=== PATIENT | male | born 1935 | race Caucasian/White ===

== ENCOUNTER 2020-05-29 13:19 | Outpatient (REF) | payer MEDICARE, OTHER, SELFPAY ==
[2020-05-29 16:32] LABS: Hematocrit 44.3 % (42-52); Hemoglobin 13.5 g/dl (14.0-18.0)
[2020-05-29 17:01] LABS: Alanine Aminotransferase 10 U/L (0-40); Albumin Level 3.8 g/dL (3.5-5.0); Alkaline Phosphatase 107 U/L (39-117); Anion Gap 18 (12-20); Aspartate Amino Transferase 13 U/L (5-37); Bilirubin Total 0.5 mg/dL (0.0-1.0); Blood Urea Nitrogen 31 mg/dL (9-16); Carbon Dioxide 28 mmol/L (22-29); Chloride 102 mmol/L (96-108); Estimated Glomerular Filt Rate > 60; Glucose Random 212 mg/dL (60-115); Potassium 4.4 mmol/L (3.3-5.1); Sodium 144 mmol/L (135-145); Total Protein 7.7 g/dL (6.5-8.0)
== END 2020-05-29 13:20 | disposition home or self-care (01) ==
LOC: HO.HMGCLDS 13:19
PROVIDERS: PCP Internal Medicine; Visit Provider Internal Medicine
DX: F33.9 Major depressive disorder, recurrent, unspecified (principal); I10 Essential (primary) hypertension; J44.9 Chronic obstructive pulmonary disease, unspecified; K21.9 Gastro-esophageal reflux disease without esophagitis
CPT/HCPCS: 36415; 80053; 85014; 85018

== ENCOUNTER 2020-06-09 00:23 | Outpatient (REF) | payer MEDICARE, OTHER, SELFPAY ==
[2020-06-09 11:43] LABS: Estimated Average Glucose 128 mg/dL; Hemoglobin A1c % 6.1 %
== END 2020-06-09 00:24 | disposition home or self-care (01) ==
LOC: HO.LHD 00:23
PROVIDERS: Visit Provider Internal Medicine
DX: R73.9 Hyperglycemia, unspecified (principal)
CPT/HCPCS: 36415; 83036

== ENCOUNTER 2020-11-25 10:19 | Emergency (ER) | payer MEDICARE, OTHER, SELFPAY ==
--- NOTE | ~2020-11-25 | XR_ITS ---
EXAMINATION: XR ABDOMEN KUB CLINICAL INDICATION: Constipation COMPARISON: None TECHNIQUE: AP view of the abdomen. FINDINGS: There is scattered stool and gas seen throughout the colon without any significant distention. The small bowel loops are normal caliber. There is mild spondylosis mid dorsal spine. No lytic process. XR/XR abdomen 1V IMPRESSION: Moderate constipation no acute process seen.
[2020-11-25 10:37] VITALS: BP 132/78; PULSE 73; O2SAT 99
[2020-11-25 10:39] VITALS: BP 123/59; PULSE 86; RESP 15; TEMP 36.4; O2SAT 96; BMI 25.0
[2020-11-25 10:41] VITALS: BP 123/59; PULSE 86; RESP 15; TEMP 36.4; O2SAT 96
--- NOTE | 2020-11-25 11:33 | ED.GENADULT ---
HPI - General Adult General Chief complaint: General Medical Stated complaint: constipation Time Seen by Provider: 11/25/20 11:31 Source: patient and family History of Present Illness HPI narrative: This is an 85-year-old male who cannot recall why he is in the emergency department. His had reported that the patient has not had a bowel movement in 2 days and has had urinary incontinence at night the last few nights. The patient self denies any headache, head injury, neck pain, chest pain, shortness of breath. He does have some chronic cough and notes that he smokes a pack-a-day. He denies abdominal pain, vomiting or diarrhea. Denies any pain or swelling to his extremities. Related Data Home Medications Medication Instructions Recorded Confirmed albuterol sulfate 90 mcg/actuation 2 puff INHALATION Q4-6H PRN 01/09/20 05/29/20 aerosol inhaler (ProAir HFA) dextromethorphan-guaifenesin 30 1 tab PO Q12H PRN tab 01/09/20 05/29/20 mg-600 mg tablet extended [id number] hr (Mucinex DM) loratadine 10 mg tablet (Claritin) 10 mg PO DAILY 01/09/20 05/29/20 omeprazole 20 mg capsule,delayed 20 mg PO BID 01/09/20 05/29/20 release donepezil PO DAILY 05/29/20 05/29/20 metoprolol succinate 100 mg 50 mg PO BID tab 05/29/20 05/29/20 tablet,extended release 24 hr Previous Rx's Medication Instructions Recorded fluticasone 250 mcg-salmeterol 50 1 inh INHALATION Q12H PRN 30 Days 07/09/20 mcg/dose blistr powdr for #60 ea inhalation (Advair Diskus) amlodipine 5 mg tablet 5 mg PO DAILY 90 Days #90 tab 08/18/20 escitalopram oxalate 10 mg tablet 10 mg PO DAILY #90 tab 09/25/20 metoprolol succinate 100 mg 150 mg PO DAILY 90 Days #135 tab 10/29/20 tablet,extended release 24 hr docusate sodium 100 mg capsule 100 mg PO BID #30 cap 11/25/20 (Colace) peg 3350-electrolytes 236 240 ml PO Q10M #4000 ml 11/25/20 gram-22.74 gram-6.74 gram-5.86 gram solution (Golytely) Allergies Allergy/AdvReac Type Severity Reaction Status Date / Time CADENCE Inhibitors Allergy Unknown angiodema Verified 05/29/20 12:41 lorazepam [Ativan] Allergy Unknown Unknown Verified 05/29/20 12:41 Review of Systems Review of Systems: Yes all other systems are reviewed and are negative Constitutional: Constitutional: Reports as per HPI and Denies fever(s) Comments: Patient not acutely ill appearing, somewhat vague historian Eyes: Eyes: Reports as per HPI and Reports no additional eye complaints ENT: Reports system reviewed and no additional complaints, except as documented, Reports as per HPI, Denies nasal congestion, Denies nasal discharge and Denies sore throat Cardiovascular: Cardiovascular: Reports as per HPI, Denies chest pain and Denies dyspnea Respiratory: Respiratory: Reports as per HPI, Denies cough and Denies dyspnea Gastrointestinal: Gastrointestinal: Reports as per HPI, Denies abdominal pain, Denies diarrhea, Denies vomiting and Reports other (Mild distension, no focal tenderness) Genitourinary: Genitourinary: Reports as per HPI, Denies hematuria, Denies dysuria and Denies urinary frequency Musculoskeletal: Musculoskeletal: Reports no additional musculoskeletal complaints and Denies numbness Integumentary/Breasts: Skin/Breast: Reports as per HPI and Denies rash Neurologic: Reports as per HPI, Denies focal weakness and Denies numbness Psychiatric: Psychiatric: Reports no additional psychiatric complaints and Reports as per HPI Endocrine: Endocrine: Reports no additional endocrine complaints and Reports as per HPI Hematologic/Lymphatic: Hematologic/Lymphatic: Reports no additional hematologic/lymphatic complaints, Reports as per HPI and Reports other (No peripheral edema) [facility] Past Medical History Medical History Chronic GERD COPD (chronic obstructive pulmonary disease) Depression, major, recurrent Environmental allergies Hallucinations Hypertension, essential Surgical History History of cataract surgery Hx of cholecystectomy Family History Family History Father Heart disease Mother Diabetes mellitus Breast cancer Brother No problems noted. Sister Lupus Sister Diabetes mellitus Son No problems noted. Son No problems noted. Son No problems noted. Daughter No problems noted. Daughter No problems noted. Social History Social History Alcohol intake: never Cigarette Packs Per Day: 0.5 Advance Directives: Yes Advance Directives Information Provided: No Advance Directives on File: No Physical Exam Vital Signs: Vital Signs: Last Vital Signs Temp 98 F 11/25/20 12:54 Pulse 72 11/25/20 12:54 Resp 18 11/25/20 12:54 BP 148/68 H 11/25/20 12:54 Pulse Ox 98 11/25/20 12:54 Body Mass Index 25.0 Medical Decision Making MDM Narrative Medical decision making narrative: Patient sent in for not having a bowel movement for a few days. Patient also reportedly had had incontinence of urine. Urinalysis shows microscopic hematuria but no sign of infection. Abdominal flat plate showed findings consistent with constipation. There did appear to be possible fecal impaction. Discussed digital disimpaction with the patient, however he refused this mode of therapy and said he would try a laxative. Will prescribe GoLYTELY to help completely clear out stool from the colon. Patient can also use Colace as a stool softener once he is cleared out of the constipation. Lab Data Lab results reviewed: Yes I reviewed the patient's lab results. Labs: Lab Results 11/25/20 Range/Units 12:52 Urine Color YELLOW Urine Appearance HAZY Urine pH 6.0 (5.0-8.0) Ur Specific Smoot >= 1.030 H (1.005-1.025) Urine Protein 1+ H (NEG-TRACE) MG/DL Urine Glucose (UA) NEG (NEG) MG/DL Urine Ketones NEG (NEG) MG/DL Urine Blood TRACE (NEG) Urine Nitrite NEG (NEG) Ur Leukocyte Esterase NEG (NEG) Urine RBC 15-29 H (0) /HPF Urine WBC 0-2 (0-4) /HPF Ur Squamous Epith Cells TRACE /LPF Urine Bacteria NONE /LPF Imaging Data Abdominal x-ray one view: Radiologist's impression: IMPRESSION: Moderate constipation no acute process seen. Discharge Plan Discharge Clinical Impression: Constipation, Hematuria, microscopic Patient Disposition: Home, Self-Care Instructions: Constipation (ED) Additional Instructions: Use the GoLYTELY, as directed until you move her bowels and have clear liquid stool, indicating if constipation is relieved. Use the Colace to help prevent recurring constipation. Follow-up with primary care physician for recheck of your urine Prescriptions: New peg 3350-electrolytes [Golytely] 236-22.74-6.74 -5.86 gram recon soln 240 ml PO Q10M Qty: 4000 RF: 0 docusate sodium [Colace] 100 mg capsule 100 mg PO BID Qty: 30 RF: 0 No Action fluticasone propion-salmeterol [Advair Diskus] 250-50 mcg/dose blister with device 1 inh inhalation Q12H PRN (Reason: asthma) 30 Days Qty: 60 RF: 3 amlodipine 5 mg tablet 5 mg PO DAILY 90 Days Qty: 90 RF: 0 escitalopram oxalate 10 mg tablet 10 mg PO DAILY Qty: 90 RF: 0 metoprolol succinate 100 mg tablet extended release 24 hr 150 mg PO DAILY 90 Days Qty: 135 RF: 0 metoprolol succinate 100 mg tablet extended release 24 hr 50 mg PO BID RF: 0 donepezil PO DAILY RF: 0 loratadine [Claritin] 10 mg tablet 10 mg PO DAILY RF: 0 Mucinex DM 30-600 mg tablet extended release 12 hr 1 tab PO Q12H PRNRF: 0 omeprazole 20 mg capsule,delayed release(DR/EC) 20 mg PO BID RF: 0 albuterol sulfate [ProAir HFA] 90 mcg/actuation HFA aerosol inhaler 2 puff inhalation Q4-6H PRNRF: 0 Discharge Date/Time: 11/25/20 14:21
[2020-11-25 12:54] VITALS: BP 148/68; PULSE 72; RESP 18; TEMP 36.6; O2SAT 98
[2020-11-25 12:59] LABS: Appearance Urine HAZY; Color Urine YELLOW; Glucose Urine UA NEG (NEG); Leukocyte Esterase Urine NEG (NEG); Nitrite Urine NEG (NEG); Specific Gravity - Urine >= 1.030 (1.005-1.025); UACC Culture Trigger NO; Urine Blood TRACE (NEG); Urine Ketones NEG (NEG); Urine Protein 1+ MG/DL (NEG-TRACE)
--- NOTE | 2020-11-25 13:03 | PC.NURSE ---
Bladder scan showed 475mL. Asked patient to attempt to use bathroom, able to urinate 550mL.
--- NOTE | 2020-11-25 13:05 | PC.NURSE ---
post void bladder scan shows 20mL
[2020-11-25 13:13] LABS: Squamous Epithelial Cell Urine TRACE /LPF; WBC Urine 0-2 /HPF (0-4)
== END 2020-11-25 14:21 | disposition home or self-care (01) ==
PROVIDERS: Emergency Provider Emergency Medicine
DX: K59.00 Constipation, unspecified (principal); R32 Unspecified urinary incontinence; F17.210 Nicotine dependence, cigarettes, uncomplicated; Z71.6 Tobacco abuse counseling; Z79.899 Other long term (current) drug therapy
CPT/HCPCS: 74018; 81001; 99283

== ENCOUNTER 2020-12-04 12:03 | Outpatient (REF) | payer MEDICARE, OTHER, SELFPAY ==
[2020-12-04 14:02] LABS: Appearance Urine HAZY; Color Urine YELLOW; Glucose Urine UA NEG (NEG); Leukocyte Esterase Urine 1+ (NEG); Nitrite Urine NEG (NEG); Specific Gravity - Urine >= 1.030 (1.005-1.025); UACC Culture Trigger YES; Urine Blood NEG (NEG); Urine Ketones NEG (NEG); Urine Protein 1+ MG/DL (NEG-TRACE)
[2020-12-04 14:16] LABS: Calcium Oxalate Crystals Urine 2+ /LPF; Mucus Urine 1+ /LPF; Squamous Epithelial Cell Urine 1+ /LPF; Urine Talc Crystals TRACE /LPF
== END 2020-12-04 12:04 | disposition home or self-care (01) ==
LOC: HO.HMGCLDS 12:03
PROVIDERS: PCP Internal Medicine; Visit Provider Internal Medicine
DX: R31.9 Hematuria, unspecified (principal)
CPT/HCPCS: 81001; 81003; 87086

== ENCOUNTER 2021-01-29 12:51 | Outpatient (REF) | payer MEDICARE, OTHER, SELFPAY ==
[2021-01-29 14:15] LABS: MANUAL DIFF FLAG NO
[2021-01-29 14:17] LABS: Basophils Absolute Auto 0.1 X10*3/uL (0.0-0.2); Basophils Percent Auto 0.7 % (0-2); Eosinophils Absolute Auto 0.3 X10*3/uL (0.0-0.4); Eosinophils Percent Auto 2.8 % (0-4); Hematocrit 42.4 % (42.0-52.0); Hemoglobin 13.2 g/dl (14.0-18.0); Imm Gran Abs Auto 0.07 X10*3/uL (0.00-0.03); Imm Gran Pct Auto 0.7 % (0.0-0.4); Lymphocytes Absolute Auto 2.5 X10*3/uL (1.2-4.9); Lymphocytes Percent Auto 23.1 % (20-40); Mean Corpuscular HGB Conc 31.1 g/dl (31.0-36.0); Mean Corpuscular Hemoglobin 30.8 pg (27.0-33.0); Mean Corpuscular Volume 99.1 fL (80.0-98.0); Mean Platelet Volume 12.9 fL (9.4-12.4); Monocytes Absolute Auto 1.3 X10*3/uL (0.1-1.2); Neutrophils Absolute Auto 6.5 x10*3/uL (2.0-8.3); Neutrophils Percent Auto 60.7 % (45-73); Platelet Count 197 X10*3/uL (160-400); Red Blood Count 4.28 X10*6/uL (4.60-5.80); Red Cell Distribution Width 14.8 % (11.0-16.0); White Blood Count 10.7 X10*3/uL (4.8-10.8)
[2021-01-29 14:32] LABS: Alanine Aminotransferase 11 U/L (0-40); Albumin Level 3.8 g/dL (3.5-5.0); Alkaline Phosphatase 97 U/L (39-117); Anion Gap 15 (12-20); Aspartate Amino Transferase 14 U/L (5-37); Bilirubin Total 0.4 mg/dL (0.0-1.0); Blood Urea Nitrogen 31 mg/dL (9-16); Calcium 9.4 mg/dL (8.4-10.2); Carbon Dioxide 25 mmol/L (22-29); Chloride 106 mmol/L (96-108); Estimated Glomerular Filt Rate > 60; Glucose Random 114 mg/dL (60-115); Potassium 4.3 mmol/L (3.3-5.1); Sodium 142 mmol/L (135-145); Total Protein 7.3 g/dL (6.5-8.0)
== END 2021-01-29 12:52 | disposition home or self-care (01) ==
LOC: HO.HMGCLDS 12:51
PROVIDERS: PCP Internal Medicine; Visit Provider Internal Medicine
DX: I10 Essential (primary) hypertension (principal); F33.9 Major depressive disorder, recurrent, unspecified; J44.9 Chronic obstructive pulmonary disease, unspecified; K21.9 Gastro-esophageal reflux disease without esophagitis; F03.90 Unspecified dementia, unspecified severity, without behavioral disturbance, psychotic disturbance, mood disturbance, and anxiety
CPT/HCPCS: 36415; 80053; 85025

== ENCOUNTER 2021-02-07 22:28 | Inpatient (IN) | payer MEDICARE, OTHER, SELFPAY ==
--- NOTE | ~2021-02-07 | XR_ITS ---
EXAMINATION: XR CHEST CLINICAL INFORMATION: Acute SOB. COMPARISON: None TECHNIQUE: Frontal view of the chest was obtained. FINDINGS: The lungs are well-expanded with increased interstitial markings suggestive of interstitial pneumonitis or edema. The heart size and pulmonary vascularity is normal. No gross bony abnormality seen. XR/XR chest 1V IMPRESSION: Increase interstitial markings both lungs suggestive of interstitial pneumonitis or edema. However there is prominent interstitial markings which have worsened since 2016 likely underlying chronic interstitial lung disease.
--- NOTE | ~2021-02-07 | CT_ITS ---
EXAMINATION: CT ANGIOGRAM OF THE CHEST WITH AND WITHOUT CONTRAST (CT PULMONARY ANGIOGRAM FOR PE) CLINICAL INFORMATION: Hypoxia. COMPARISON: Chest x-ray earlier the same day. CT abdomen pelvis 01/24/2018. TECHNIQUE: Prior to contrast administration, noncontrast localization images were obtained. Subsequently, multidetector volumetric imaging was performed from the thoracic inlet to below the diaphragms following the administration of 65 mL Omnipaque 350 intravenous contrast. No contrast reaction reported Sagittal, coronal, and MIP oblique sagittal reformatted images were obtained on the CT workstation, uploaded to PACS, and reviewed. This CT examination was performed using dose optimization techniques as appropriate, variously including the following: *Automated exposure control *Adjustment of mA and/or kV according to patient size (this includes techniques or standardized protocols for targeted exams where dose is matched to indication/reason for exam; i.e. extremities or head) *Use of iterative reconstruction technique Total exam dose-length product 324 mGy-cm FINDINGS: QUALITY OF STUDY/CONTRAST BOLUS: Fair. There is respiratory motion artifact and contrast under filling most notable in the lower lobes. PULMONARY ARTERIES: No central pulmonary embolus seen. Evaluation of the segmental pulmonary arteries is limited but no filling defects are seen. THORACIC AORTA: Circumferential calcified atherosclerotic changes of the aorta but no aneurysm. LUNG: There is a background of severe centrilobular emphysema. There is round 3.0 x 2.7 cm mass vs. consolidation in the left lower lobe image 27/62. There is adjacent fluid in the left major fissure. There is atelectasis at the lung bases. PLEURA: Small bilateral pleural effusions are present. MEDIASTINUM: 2.2 x 2.1 cm subcarinal lymphadenopathy, nonspecific. There is an enlarged right paratracheal lymph node measuring 2.3 x 1.4 cm. Prominent precarinal lymph nodes. Several subcentimeter AP window and prevascular lymph nodes are present. Right high paratracheal lymph nodes are less than 1 cm in greatest dimension, image 14/62. Heart size upper limits of normal. Three-vessel coronary artery calcification. No pericardial effusion. CHEST WALL/AXILLA: No axillary or internal mammary lymphadenopathy. OSSEOUS STRUCTURES: No acute or suspicious osseous abnormality. UPPER ABDOMEN: Diffuse left adrenal thickening is similar to the prior study. Normal right adrenal gland. The pancreatic duct appears slightly prominent and irregular. There is atrophy of the tail of the pancreas that appears new/worsened from the prior study. No reflux of contrast into the hepatic veins to suggest elevated right heart pressures. CT/CT angio chest PE protocol IMPRESSION: Somewhat limited study but no pulmonary embolus seen. The 3.0 cm mass vs. consolidation in the left lower lobe. This is new from the prior study 01/24/2018. They could be malignant, infectious, or inflammatory. Recommend clinical correlation. Consider further evaluation based on clinical suspicion for pneumonia. If malignancy is favored, PET CT or biopsy could be obtained per Fleischner guidelines. There is a suggestion of increased prominence and irregularity of the pancreatic duct with atrophy tail of the pancreas. An underlying pancreatic mass (malignancy) is possible. Recommend pancreatic protocol CT or preferably MRI for further evaluation, preferably when the patient's acute clinical issues improve to allow adequate breath-holding. Small bilateral pleural effusions. VTE: negative
--- NOTE | ~2021-02-07 | XR_ITS ---
EXAMINATION: XR CHEST CLINICAL INFORMATION: Shortness of breath COMPARISON: 04/12/2015 TECHNIQUE: Frontal view of the chest was obtained. FINDINGS: Lung volumes are symmetric. There are patchy airspace opacities scattered in the right lung and likely also in the left lung to a lesser degree, superimposed on chronic interstitial prominence. No evidence of pneumothorax. Small left pleural effusion may be present. Cardiac size is within normal limits. There is atherosclerotic calcification along the aorta. No acute osseous findings are seen. XR/XR chest 1V IMPRESSION: Patchy airspace opacities, right greater than left, which may reflect pneumonia superimposed on chronic interstitial prominence. Suggestion of small left pleural effusion. Radiographic followup after treatment/resolution of symptoms is recommended.
--- NOTE | 2021-02-07 22:34 | ECG_ITS ---
Test Reason : DYSPNEA Blood Pressure : / mmHG Vent. Rate : 078 BPM Atrial Rate : 078 BPM P-R Int : 192 ms QRS Dur : 078 ms QT Int : 412 ms P-R-T Axes : 061 062 022 degrees QTc Int : 469 ms Normal sinus rhythm Low voltage QRS Borderline ECG When compared with ECG of 24-JAN-2018 13:35, No significant change was found Referred By: Karl Winters Electronically Signed By:JANN MINAYA MD
[2021-02-07 22:39] VITALS: BP 147/55; BP 167/67; PULSE 77; PULSE 90; RESP 25; TEMP 36.4; O2SAT 88; O2SAT 97; BMI 30.7
--- NOTE | 2021-02-07 22:39 | ED.SOB ---
HPI - SOB/Dyspnea General Chief Complaint: Dyspnea Stated Complaint: Difficulity Breathing Time Seen by Provider: 02/07/21 22:33 Source: EMS Mode of arrival: EMS Limitations: altered mental status History of Present Illness HPI Narrative: Patient history of COPD dementia depression hypertension came from home for increased shortness of breath try to used his nebulizer at home was saturating 88% at room air when EMS arrived. Patient with very limited history. Hard of hearing No fever noticed , patient is vaccinated against COVID Related Data Home Medications Medication Instructions Recorded Confirmed albuterol sulfate 90 mcg/actuation 2 puff INHALATION Q4-6H PRN 01/09/20 01/29/21 aerosol inhaler (ProAir HFA) loratadine 10 mg tablet (Claritin) 10 mg PO DAILY 01/09/20 01/29/21 omeprazole 20 mg capsule,delayed 20 mg PO BID 01/09/20 01/29/21 release donepezil PO DAILY 05/29/20 01/29/21 Previous Rx's Medication Instructions Recorded fluticasone 250 mcg-salmeterol 50 1 inh INHALATION Q12H PRN 30 Days 07/09/20 mcg/dose blistr powdr for #60 ea inhalation (Advair Diskus) docusate sodium 100 mg capsule 100 mg PO BID #30 cap 11/25/20 (Colace) peg 3350-electrolytes 236 240 ml PO Q10M #4000 ml 11/25/20 gram-22.74 gram-6.74 gram-5.86 gram solution (Golytely) escitalopram oxalate 10 mg tablet 10 mg PO DAILY #90 tab 12/28/20 amlodipine 5 mg tablet 5 mg PO DAILY 90 Days #90 tab 01/29/21 metoprolol succinate 100 mg 50 mg PO BID PRN 90 Days #45 tab 01/29/21 tablet,extended release 24 hr Allergies Allergy/AdvReac Type Severity Reaction Status Date / Time CADENCE Inhibitors Allergy Unknown angiodema Verified 01/29/21 12:28 lorazepam [Ativan] Allergy Unknown Unknown Verified 01/29/21 12:28 Review of Systems Review of Systems: Yes all other systems are reviewed and are negative PMFSH Past Medical History Medical History Chronic GERD COPD (chronic obstructive pulmonary disease) Depression, major, recurrent Environmental allergies Hallucinations Hypertension, essential Surgical History History of cataract surgery Hx of cholecystectomy Family History Family History Father Heart disease Mother Diabetes mellitus Breast cancer Brother No problems noted. Sister Lupus Sister Diabetes mellitus Son No problems noted. Son No problems noted. Son No problems noted. Daughter No problems noted. Daughter No problems noted. Social History Social History Housing: House Alcohol intake: never Patient Tobacco Use Status: Current everyday Tobacco user Tobacco use type: Cigarette Cigarettes Per Day: 7 Advance Directives: No Advance Directives Information Provided: No Current occupational status: retired Physical Exam Vital Signs: Vital Signs: Last Vital Signs Temp 97.6 F 02/07/21 22:39 Pulse 78 02/07/21 23:03 Resp 18 02/07/21 23:31 BP 147/55 H 02/07/21 22:39 Pulse Ox 97 02/07/21 22:39 Oxygen Flow Rate 1 02/07/21 22:39 BMI result Body Mass Index 30.7 Appearance: Alert. Oriented X2. mild distress , thin built, hard of hearing Eyes: No pallor icterus ENT: Pharynx normal. Oral Mucosa moist Neck: Normal inspection. Neck supple. CVS: Normal heart rate and rhythm. Pulses normal. Respiratory: Mild respiratory distress. Equal air entry bilateral, bilateral wheezing with occasional rales at the bases Abdomen: Soft and nontender. Bowel sounds are present, no mass palpable, Skin: Skin warm and dry. Normal skin color. Normal skin turgor. Extremities: No lower extremity edema. No calf tenderness Neuro: Oriented X 2. No motor deficit. MDM - SOB/Dyspnea MDM Narrative Medical decision making narrative: Patient with COPD with bilateral infiltrate clinically patient is not septic. Will give IV Rocephin and Zithromax patient's BNP is slightly elevated but clinically patient is not in CHF. COVID-19 negative admit patient to medical service Lab Data Attestation: I reviewed the patient's lab results. Result diagrams: 02/07/21 23:32 02/07/21 23:32 Labs: Lab Results 02/07/21 02/07/21 02/07/21 Range/Units 23:32 23:32 23:32 WBC 10.6 (4.8-10.8) X10*3/uL RBC 4.08 L (4.60-5.80) X10*6/uL Hgb 12.7 L (14.0-18.0) g/dl Hct 40.2 L (42.0-52.0) % MCV 98.5 H (80.0-98.0) fL MCH 31.1 (27.0-33.0) pg MCHC 31.6 (31.0-36.0) g/dl RDW 14.8 (11.0-16.0) % Plt Count 188 (160-400) X10*3/uL MPV 12.6 H (9.4-12.4) fL Immature Gran % (Auto) 0.8 H (0.0-0.4) % Neut % (Auto) 64.2 (45-73) % Lymph % (Auto) 20.7 (20-40) % [place] % (Auto) 11.6 H (2-11) % Eos % (Auto) 2.1 (0-4) % Baso % (Auto) 0.6 (0-2) % Lymph # (Auto) 2.2 (1.2-4.9) X10*3/uL [place] # (Auto) 1.2 (0.1-1.2) X10*3/uL Eos # (Auto) 0.2 (0.0-0.4) X10*3/uL Baso # (Auto) 0.1 (0.0-0.2) X10*3/uL Abs Immat Gran (auto) 0.09 H (0.00-0.03) X10*3/uL Absolute Neuts (auto) 6.8 (2.0-8.3) x10*3/uL Absolute Nucleated RBC 0.000 (0.0-0.012) X10*3/uL Nucleated RBC % (auto) 0.0 (0.0-0.2) /100WBC Sodium 139 (135-145) mmol/L Potassium 4.9 (3.3-5.1) mmol/L Chloride 106 (96-108) mmol/L Carbon Dioxide 24 (22-29) mmol/L Anion Gap 14 (12-20) BUN 35 H (9-16) mg/dL Creatinine 0.87 (0.5-1.4) mg/dL Estim Creat Clear Calc 63.8 Estimated GFR > 60 Random Glucose 104 (60-115) mg/dL Lactic Acid (0.5-2.0) mmol/L Calcium 9.4 (8.4-10.2) mg/dL Troponin I High Sens 11.1 (<3.5-35.0) ng/L B-Natriuretic Peptide 624 H (<100) pg/mL COVID-19 (MAR[facility]) (Negative) COVID-19 Clin Com 02/07/21 02/07/21 Range/Units 23:32 23:32 WBC (4.8-10.8) X10*3/uL RBC (4.60-5.80) X10*6/uL Hgb (14.0-18.0) g/dl Hct (42.0-52.0) % MCV (80.0-98.0) fL MCH (27.0-33.0) pg MCHC (31.0-36.0) g/dl RDW (11.0-16.0) % Plt Count (160-400) X10*3/uL MPV (9.4-12.4) fL Immature Gran % (Auto) (0.0-0.4) % Neut % (Auto) (45-73) % Lymph % (Auto) (20-40) % [place] % (Auto) (2-11) % Eos % (Auto) (0-4) % Baso % (Auto) (0-2) % Lymph # (Auto) (1.2-4.9) X10*3/uL [place] # (Auto) (0.1-1.2) X10*3/uL Eos # (Auto) (0.0-0.4) X10*3/uL Baso # (Auto) (0.0-0.2) X10*3/uL Abs Immat Gran (auto) (0.00-0.03) X10*3/uL Absolute Neuts (auto) (2.0-8.3) x10*3/uL Absolute Nucleated RBC (0.0-0.012) X10*3/uL Nucleated RBC % (auto) (0.0-0.2) /100WBC Sodium (135-145) mmol/L Potassium (3.3-5.1) mmol/L Chloride (96-108) mmol/L Carbon Dioxide (22-29) mmol/L Anion Gap (12-20) BUN (9-16) mg/dL Creatinine (0.5-1.4) mg/dL Estim Creat Clear Calc Estimated GFR Random Glucose (60-115) mg/dL Lactic Acid 2.2 H* (0.5-2.0) mmol/L Calcium (8.4-10.2) mg/dL Troponin I High Sens (<3.5-35.0) ng/L B-Natriuretic Peptide (<100) pg/mL COVID-19 (MARLA) Negative (Negative) COVID-19 Clin Com See Note ECG Data Attestation: I personally reviewed and interpreted this ECG as follows: Interpretation: Normal sinus rhythm heart rate 78 beats per minute no acute ST wave changes no acute ischemia Discharge Plan Discharge Clinical Impression: Acute hypoxemic respiratory failure Pneumonia Qualifiers: Pneumonia type: due to unspecified organism Laterality: bilateral Lung location: lower lobe of lung Qualified Code(s): J18.9 - Pneumonia, unspecified organism COPD (chronic obstructive pulmonary disease) Qualifiers: COPD type: chronic bronchitis Chronic bronchitis type: mucopurulent Qualified Code(s): J41.1 - Mucopurulent chronic bronchitis Patient Disposition: Admitted As Inpatient
[2021-02-07] MEDS: Albuterol/Iprat 2.5/0.5MG 3 ML AMPUL.NEB INHALE (23:02)
[2021-02-07 23:03] VITALS: PULSE 78; RESP 18; O2SAT 96
[2021-02-07 23:31] VITALS: PULSE 94; RESP 18; O2SAT 93
[2021-02-07 23:40] LABS: MANUAL DIFF FLAG NO
[2021-02-07 23:41] LABS: Basophils Absolute Auto 0.1 X10*3/uL (0.0-0.2); Basophils Percent Auto 0.6 % (0-2); Eosinophils Absolute Auto 0.2 X10*3/uL (0.0-0.4); Eosinophils Percent Auto 2.1 % (0-4); Hematocrit 40.2 % (42.0-52.0); Hemoglobin 12.7 g/dl (14.0-18.0); Imm Gran Abs Auto 0.09 X10*3/uL (0.00-0.03); Imm Gran Pct Auto 0.8 % (0.0-0.4); Lymphocytes Absolute Auto 2.2 X10*3/uL (1.2-4.9); Lymphocytes Percent Auto 20.7 % (20-40); Mean Corpuscular HGB Conc 31.6 g/dl (31.0-36.0); Mean Corpuscular Hemoglobin 31.1 pg (27.0-33.0); Mean Corpuscular Volume 98.5 fL (80.0-98.0); Mean Platelet Volume 12.6 fL (9.4-12.4); Monocytes Absolute Auto 1.2 X10*3/uL (0.1-1.2); Monocytes Percent Auto 11.6 % (2-11); Neutrophils Absolute Auto 6.8 x10*3/uL (2.0-8.3); Neutrophils Percent Auto 64.2 % (45-73); Platelet Count 188 X10*3/uL (160-400); Red Blood Count 4.08 X10*6/uL (4.60-5.80); Red Cell Distribution Width 14.8 % (11.0-16.0); White Blood Count 10.6 X10*3/uL (4.8-10.8)
[2021-02-07 23:54] LABS: COVID-19 Test Negative (Negative); IDNOW Serial# 9DD0AD1C
[2021-02-08] VITALS (10 sets, daily range): BP systolic 121–154; BP diastolic 51–78; PULSE 76–89; RESP 14–33; TEMP 36.5–36.8; O2SAT 91–98; BMI 25.9
[2021-02-08 00:03] LABS: Anion Gap 14 (12-20); Blood Urea Nitrogen 35 mg/dL (9-16); Calcium 9.4 mg/dL (8.4-10.2); Carbon Dioxide 24 mmol/L (22-29); Chloride 106 mmol/L (96-108); Creatinine Clr Calc Pharmacy 63.8; Estimated Glomerular Filt Rate > 60; Glucose Random 104 mg/dL (60-115); Potassium 4.9 mmol/L (3.3-5.1); Sodium 139 mmol/L (135-145)
[2021-02-08 00:04] LABS: Lactic Acid 2.2 mmol/L (0.5-2.0)
[2021-02-08 00:07] LABS: B Type Natriuretic Peptide 624 pg/mL (<100)
--- NOTE | 2021-02-08 00:46 | P.HPHOSP_ITS ---
History of Present Illness Date of Service: 02/08/21 Chief Complaint: shortness of breath 85-year-old male with a past medical history of hypertension, hyperlipidemia, COPD-not on home oxygen, dementia presented to the hospital from home with a chief complaint of shortness of breath. Patient is drowsy; most of the history obtained from the patient's Yasmin. Reportedly patient was doing fine until yesterday and today he noted to have shortness of breath. Which has been gradually worsening and noted to be dyspneic subsequently EMS was called in in sent to the hospital for further evaluation. Denies patient complaining of any chest pain palpitations. Denies any abdominal pain nausea vomiting or diarrhea Denies any urinary symptoms. Also reports that patient has chronic cough-which has not been changed. Denies any difficulty swallowing. Denies any recent falls. Denies any numbness tingling or focal weakness. Review of all other systems is limited given patient is confused. ER course: Per ER team patient saturating 97% on supplemental oxygen. Not in respiratory distress. Chest x-ray showed patchy opacities- given antibiotics for possible pneumonia. Admitted for further management COUNTS INCLUDE 234 BEDS AT THE [facility] Medical History CHF (congestive heart failure) Chronic GERD COPD (chronic obstructive pulmonary disease) COPD with acute exacerbation Depression, major, recurrent Environmental allergies Hallucinations Hypertension, essential Interstitial lung disease Mass in chest Family History Father Heart disease Mother Diabetes mellitus Breast cancer Brother No problems noted. Sister Lupus Sister Diabetes mellitus Son No problems noted. Son No problems noted. Son No problems noted. Daughter No problems noted. Daughter No problems noted. Pertinent family history: as mentioned above Surgical History History of cataract surgery Hx of cholecystectomy Social History Household Members: Spouse Housing: House Alcohol intake: never Patient Tobacco Use Status: Current everyday Tobacco user Tobacco use type: Cigarette Cigarettes Per Day: 7 service: No Current occupational status: retired Meds Allergies Allergy/AdvReac Type Severity Reaction Status Date / Time CADENCE Inhibitors Allergy Unknown angiodema Verified 01/29/21 12:28 lorazepam [Ativan] Allergy Unknown Unknown Verified 01/29/21 12:28 Active Medications: Current Medications Azithromycin 500 mg/ Sodium (Chloride) 250 mls @ 125 mls/hr IV ONCE ONE Stop: 02/08/21 02:41 Sodium Chloride (Ns) 1,000 mls @ 999 mls/hr IVCONT .Q1H1M RAY Stop: 02/08/21 01:45 Home Medications Medication Instructions Recorded Confirmed Last Taken Type donepezil PO DAILY 05/29/20 01/29/21 Unknown History gabapentin 100 mg capsule 1 cap PO DAILY 02/09/21 02/09/21 Unknown History metoprolol succinate 100 mg 1 tab PO DAILY 02/09/21 02/09/21 Unknown History tablet,extended release 24 hr Physical Exam Vital Signs and Narrative: Vital Signs: Last Vital Signs Temp 97.6 F 02/07/21 22:39 Pulse 78 02/07/21 23:03 Resp 18 02/07/21 23:31 BP 147/55 H 02/07/21 22:39 Pulse Ox 97 02/07/21 22:39 Oxygen Flow Rate 1 02/07/21 22:39 BMI result Body Mass Index 30.7 Gen: Appears be in no acute distress HEENT: NCAT, Moist mucosa. Pulmonary: coarse breath sounds CVS: Normal S1-S2 Abdomen: BS+, Soft, Nontender Extremities: Warm well perfused Neuro: Alert and awake. Results Labs CBC and Chem 7: 02/11/21 06:30 02/11/21 06:30 Labs: Laboratory Results - last 24 hr 02/07/21 02/07/21 02/07/21 23:32 23:32 23:32 MCV 98.5 H MCH 31.1 MCHC 31.6 RDW 14.8 Plt Count 188 MPV 12.6 H Immature Gran % (Auto) 0.8 H Neut % (Auto) 64.2 Lymph % (Auto) 20.7 Gillespie % (Auto) 11.6 H Eos % (Auto) 2.1 Baso % (Auto) 0.6 Lymph # (Auto) 2.2 Gillespie # (Auto) 1.2 Eos # (Auto) 0.2 Baso # (Auto) 0.1 Abs Immat Gran (auto) 0.09 H Absolute Neuts (auto) 6.8 Absolute Nucleated RBC 0.000 Nucleated RBC % (auto) 0.0 Anion Gap 14 Estim Creat Clear Calc 63.8 Estimated GFR > 60 Random Glucose 104 Lactic Acid Calcium 9.4 B-Natriuretic Peptide 624 H COVID-19 (MAR[facility]) COVID-19 Clin Com 02/07/21 02/07/21 23:32 23:32 MCV MCH MCHC RDW Plt Count MPV Immature Gran % (Auto) Neut % (Auto) Lymph % (Auto) Gillespie % (Auto) Eos % (Auto) Baso % (Auto) Lymph # (Auto) Gillespie # (Auto) Eos # (Auto) Baso # (Auto) Abs Immat Gran (auto) Absolute Neuts (auto) Absolute Nucleated RBC Nucleated RBC % (auto) Anion Gap Estim Creat Clear Calc Estimated GFR Random Glucose Lactic Acid 2.2 H* Calcium B-Natriuretic Peptide COVID-19 (MARLA) Negative COVID-19 Clin Com See Note Imaging Radiologist's Impressions: Impressions Chest X-Ray 02/08/21 00:05 IMPRESSION: Patchy airspace opacities, right greater than left, which may reflect pneumonia superimposed on chronic interstitial prominence. Suggestion of small left pleural effusion. Radiographic followup after treatment/resolution of symptoms is recommended. Assessment and Plan (1) PNA (pneumonia): Status: Acute (2) COPD (chronic obstructive pulmonary disease): Status: Acute (3) Hypertension, essential: Status: Acute 85-year-old male with a past medical history of hypertension, hyperlipidemia, COPD-not on home oxygen, dementia presented to the hospital from home with a chief complaint of shortness of breath. noted to have pneumonia. Admitted for further management. Acute hypoxic respiratory failure: multifactorial- CHF versus COPD versus pneumonia after admission to the hospital patient became acutely hypoxic. Able to speak in full sentences but tachypneic. Patient given a dose of Lasix 40 IV D-dimer slightly elevated- will obtain CT chest with PE protocol will obtain venous blood gas keep the patient on Bipap patient has elevated proBNP- Will obtain echocardiogram. Pulmonary consult update: 640AM-> pt slighlty restless, mildly tachypneic; VBG PH 7.3; pco2 35; po2 37.on Bipap. Gave morphine for anxiety. requested ICU eval-> pending inputs. Pneumonia: Chest showed patchy opacities. Continue ceftriaxone azithromycin. Follow up cultures. COPD:Solu-Medrol IV t.i.d. Santiago p.r.n. supplemental oxygen. Will continue to monitor. History of dementia: Continue home donepezil History of hypertension: Continue home metoprolol / amlodipine History of GERD: Continue home PPI DVT prophylaxis: SCD boots Code status: Full code Quality Stroke Does the patient have a stroke diagnosis?: No VTE Prior VTE?: No VTE Risk Level:: Medical - moderate - high VTE Device Contraindication: N/A - Device Ordered VTE Drug Contraindication: Treatment Not Indicated
[2021-02-08 01:14] LABS: Troponin-I High Sensitivity 11.1 ng/L (<3.5-35.0)
[2021-02-08 01:38] LABS: Reflex Lactate? Lactic Acid Added
[2021-02-08 01:52] LABS: D Dimer High Sensitivity 393 NG/ML
[2021-02-08] MEDS: methylPREDNISolone Sod Succ 125 MG/2 ML VIAL IVPUSH (02:03)
[2021-02-08] MEDS: 0.9 % Sodium Chloride 1,000 ML 999 ML IVCONT (02:03)
[2021-02-08 02:05] LABS: ~Lactic Acid-LAB USE ONLY 1.8 mmol/L (0.5-2.0)
[2021-02-08] MEDS: cefTRIAXone sodium 1 GM in 0.9 % Sodium Chloride 50 ML IV ×2 (02:05→23:20)
[2021-02-08] MEDS: Azithromycin 500 MG in 0.9 % Sodium Chloride 250 ML 125 MG IV ×2 (02:42→23:20)
[2021-02-08] MEDS: Albuterol/Iprat 2.5/0.5MG 3 ML AMPUL.NEB INHALE ×2 (03:06→04:17)
[2021-02-08] MEDS: Morphine Sulfate 2 MG/ML CARTRIDGE 1 MG IVPUSH ×2 (04:36→06:18)
--- NOTE | 2021-02-08 04:40 | PC.NURSE ---
Pt noted to be tripoding in bed, asking for help while on an UPD. O2 sat noted to be 98% while on UPD however pt tachypneic, speaking in sentence fragments. This RN contacting hospitalist, plan for VBG and BiPAP. Hospitalist and RT at bedside. Plan for Lasix and a grajeda catheter. VBG obtained and sent.
[2021-02-08 04:44] LABS: Venous Blood Gas Refer to POC result
[2021-02-08] MEDS: Furosemide 40 MG/4 ML VIAL IVPUSH (04:44)
[2021-02-08 04:45] LABS: VBG Base Excess -5.8 mmol/L; VBG HCO3 19 mmol/L (22-26); VBG pCO2 35 mmHg; VBG pH 7.33 (7.32-7.43); VBG pO2 37 mmHg
--- NOTE | 2021-02-08 05:06 | PC.NURSE ---
Per MD, plan for BIPAP for 1 hour, to wean down O2 and then proceed with CTA.
[2021-02-08 05:56] LABS: MANUAL DIFF FLAG NO
[2021-02-08 05:59] LABS: Basophils Percent Auto 0.3 % (0-2); Eosinophils Percent Auto 0.4 % (0-4); Hematocrit 37.9 % (42.0-52.0); Hemoglobin 11.9 g/dl (14.0-18.0); Imm Gran Abs Auto 0.08 X10*3/uL (0.00-0.03); Imm Gran Pct Auto 0.8 % (0.0-0.4); Lymphocytes Absolute Auto 0.8 X10*3/uL (1.2-4.9); Lymphocytes Percent Auto 8.1 % (20-40); Mean Corpuscular HGB Conc 31.4 g/dl (31.0-36.0); Mean Corpuscular Hemoglobin 31.1 pg (27.0-33.0); Mean Platelet Volume 12.4 fL (9.4-12.4); Monocytes Absolute Auto 0.3 X10*3/uL (0.1-1.2); Monocytes Percent Auto 2.5 % (2-11); Neutrophils Absolute Auto 8.9 x10*3/uL (2.0-8.3); Neutrophils Percent Auto 87.9 % (45-73); Platelet Count 165 X10*3/uL (160-400); Red Blood Count 3.83 X10*6/uL (4.60-5.80); Red Cell Distribution Width 14.8 % (11.0-16.0); White Blood Count 10.1 X10*3/uL (4.8-10.8)
[2021-02-08 06:16] LABS: Anion Gap 14 (12-20); Blood Urea Nitrogen 30 mg/dL (9-16); Calcium 8.4 mg/dL (8.4-10.2); Carbon Dioxide 20 mmol/L (22-29); Chloride 109 mmol/L (96-108); Creatinine Clr Calc Pharmacy 66.9; Estimated Glomerular Filt Rate > 60; Glucose Random 153 mg/dL (60-115); Sodium 139 mmol/L (135-145)
--- NOTE | 2021-02-08 06:16 | PC.NURSE ---
Hospitalist notified that pt is unable to go for CTA at this time as he is unable to lay flat. Pt becomes very anxious and restless when not in an upright position.
[2021-02-08] MEDS: 0.9 % Sodium Chloride Flush 3 ML SYRINGE IVFLUSH ×2 (07:12→19:23)
[2021-02-08] MEDS: Donepezil HCl 5 MG TABLET PO (08:55)
[2021-02-08] MEDS: Escitalopram Oxalate 10 MG TABLET PO (08:55)
[2021-02-08] MEDS: methylPREDNISolone Sod Succ 40 MG/ML VIAL IVPUSH ×3 (08:55→23:20)
[2021-02-08] MEDS: Metoprolol Succinate ER 50 MG TAB.ER.24H PO (08:55)
--- NOTE | 2021-02-08 10:00 | CA_ITS ---
Transthoracic Echocardiogram Patient (Last, First, Middle): Marco Kelly F Gender: Male Date of : 1935 Age: 85 Procedure Date: 02/08/2021 Procedure Type: Transthoracic Echocardiogram Location: [facility] [place] Height: 167.64 cm Weight: 86.18 kg BSA: 1.96 m2 Heart Rate: bpm BP: 146 / 60 mmHg Company Manager: Referring MD: Taco Sierra MD Symptoms: elevated proBNP Study Quality: Fair ECG Rhythm: Atrial Fibrillation Conclusions: - 1. Normal LV systolic function with mild LVH with LVEF of 60 65% with pseudonormal filling pattern 2. Severely dilated left atrium 3. Calcific mitral stenosis is of possibly moderate severity 4. Moderately elevated right ventricular systolic pressure 5. No gross pericardial effusion Findings Left Ventricle Normal left ventricular cavity size. There is mildly increased left ventricular wall thickness. The left ventricular systolic function is normal. The visually estimated ejection fraction is between 60-65%. Spectral Doppler is indicative of a pseudonormal filling pattern. Right Ventricle Normal right ventricular cavity size and systolic function. Atria The left atrium is severely dilated. Interatrial shunt cannot be excluded. The right atrium is mildly dilated. Aortic Valve There is mild calcification of the aortic valve. There is mild thickening of the aortic valve. There is no aortic valve stenosis. There is trace (trivial) aortic valve regurgitation. Mitral Valve There is moderate anterior and severe posterior mitral leaflet thickening. There is severe mitral annular calcification. There is mild to moderate mitral valve regurgitation. There is moderate mitral valve stenosis. Pulmonic Valve The pulmonic valve was not well visualized. Tricuspid Valve There is mild tricuspid valve regurgitation. Mildly elevated right atrial pressure. Moderate pulmonary hypertension is present. Great Vessels The aorta was not well visualized. The pulmonary artery was not well visualized. Venous The inferior vena cava was not well visualized. The inferior vena cava is mildly dilated. Pericardium/Pleural There is no evidence of pericardial effusion. Prior Study Comparison No prior study available for comparison. Measurements 2D Linear Measurements IVSd: 1.34 0.6-0.9/0.6-1.0 cm LVIDd: 3.29 3.9-5.3/4.2-5.9 cm LVIDd Index: 1.68 2.4-3.2/2.2-3.1 cm/m2 LVIDs: 1.99 2.0-3.6 cm LVPWd: 1.39 0.7-1.1 cm Ao Root: 3.20 2.1-3.5 cm LA Diam: 5.10 2.7-3.8/3.0-4.0 cm LAIDs Index: 2.60 1.5-2.3 cm/m2 LV Mass: 189.86 67-162/88-224 g LV Mass Index: 96.87 43-95/49-115 g/m2 LVOT Diam: 2.10 3.0+(-)1.3 cm Mitral Valve MV VTI: 0.60 MV Pk Pako: 2.16 MV Mn Pako: 1.43 MV Pk Grad: 19.00 MV Mn Grad: 10.00 MV Pk E: 1.64 MV PK A: 1.41 MV Decel Time: 206.00 E/A: 1.20 E'Lateral: 5.55 E'Medial: 5.11 E/E' Med: 32.10 E/E' Lat: 29.50 PHT: 60.00 MVA PHT: 3.67 MVA Continuity: 1.60 Decel [place]: 7.94 Aortic Valve AoV Pk Pako: 1.95 AoV Mn Pako: 0.88 AoV VTI: 0.34 AoV Pk Grad: 15.00 Aov Mn Grad: 4.00 AJIT Cont.VTI: 2.86 LVOT LVOT Pk Pako: 1.08 LVOT Mn Pako: 0.69 LVOT VTI: 0.28 LVOT Pk Grad: 5.00 LVOT Mn Grad: 2.00 LVOT Diam: 2.10 LVOT Area: 3.46 Diastolic Function MV Pk E: 1.64 MV Pk A: 1.41 E/A: 1.20 E'Medial: 5.11 E/E' Med: 32.10 E' Laterial: 5.55 E/E' Lat: 29.50 Right Ventricle TAPSE (mm): 26.00 TVS' Pako: 14.00 Tricuspid Valve TR Pk Pako: 3.31 TR Pk Grad: 44.00 RA Press: 8.00 RVSP: 52.00 Great Vessels Aorta Ao Root-2D: 3.20 2.0-3.7 cm Ao Asc: 2.90 2.1-3.4 cm Pulmonary Valve PV Pk Pako: 0.94 Peak PV Grad: 4.00 Updated in Other Vendor System with Status of Final Dashawn Bernard MD electronically signed on 02/08/2021 6:43:10 PM with status of Final
--- NOTE | 2021-02-08 10:00 | PM.CNPUL ---
History of Present Illness History of Present Illness Consult date: 02/08/21 Chief complaint: Pneumonia Narrative: This patient was seen by me this morning for pulmonary consultation. He has been in the emergency room suite since last night, came with history of increasing shortness of breath of 1 day's duration. Patient denies fever chills or expectoration of any mucopurulent phlegm. He denies chest pain or any tachy arrhythmic. He has had no symptoms of upper respiratory infection and has not been exposed to any sick contacts lately. Past medical history includes chronic obstructive pulmonary disease for a few years, for which he uses albuterol inhaler only p.r.n. He has not used oxygen at home, Also has hypertension, hyperlipidemia, mild depression, and dementia, which may be age related . Initially in the emergency room his O2 sat was normal on room air but then he developed increased hypoxemia, and is requiring oxygen supplement. Chest x-ray does show gross abnormality, with patchy infiltrates in both lungs more marked on the right side. Review of Systems Review of Systems: Yes Unobtainable due to mental condition [facility] Past Medical History Medical History (Updated 02/08/21 @ 13:26 by Kassy Jacques MD) CHF (congestive heart failure) Chronic GERD COPD (chronic obstructive pulmonary disease) Depression, major, recurrent Environmental allergies Hallucinations Hypertension, essential Interstitial lung disease Family History Family History Father Heart disease Mother Diabetes mellitus Breast cancer Brother No problems noted. Sister Lupus Sister Diabetes mellitus Son No problems noted. Son No problems noted. Son No problems noted. Daughter No problems noted. Daughter No problems noted. Surgical History Surgical History History of cataract surgery Hx of cholecystectomy Social History Social History Housing: House Alcohol intake: never Patient Tobacco Use Status: Current everyday Tobacco user Tobacco use type: Cigarette Cigarettes Per Day: 7 Advance Directives: No Advance Directives Information Provided: No Current occupational status: retired Meds Allergies Allergy/AdvReac Type Severity Reaction Status Date / Time CADENCE Inhibitors Allergy Unknown angiodema Verified 01/29/21 12:28 lorazepam [Ativan] Allergy Unknown Unknown Verified 01/29/21 12:28 Active Medications: Current Medications Acetaminophen (Acetaminophen 325 Mg Tablet) 650 mg PO Q6H PRN PRN Reason: Pain, Mild (Pain Scale 1-3) Albuterol/Ipratropium (Albuterol/Iprat 2.5/0.5mg 3 Ml Ampul.Neb) 3 ml INHALE RQ4H PRN PRN Reason: Shortness of Breath/Wheezing Last Admin: 02/08/21 04:17 Dose: 3 ml Documented by: Donepezil HCl (Donepezil Hcl 5 Mg Tablet) 5 mg PO DAILY [facility] Last Admin: 02/08/21 08:55 Dose: 5 mg Documented by: Escitalopram Oxalate (Escitalopram Oxalate 10 Mg Tablet) 10 mg PO DAILY [facility] Last Admin: 02/08/21 08:55 Dose: 10 mg Documented by: Ceftriaxone Sodium 1 gm/ (Sodium Chloride) 50 mls @ 100 mls/hr IV Q24H RAY Azithromycin 500 mg/ Sodium (Chloride) 250 mls @ 125 mls/hr IV Q24H RAY Melatonin (Melatonin 3 Mg Tablet) 6 mg PO BEDTIME PRN PRN Reason: Insomnia Methylprednisolone Sodium Succinate (Methylprednisolone Sod Succ 40 Mg/Ml Vial) 40 mg IVPUSH Q8H [facility] Last Admin: 02/08/21 08:55 Dose: 40 mg Documented by: Metoprolol Succinate (Metoprolol Succinate Er 50 Mg Tab.Er.24h) 50 mg PO DAILY [facility]; Protocol Last Admin: 02/08/21 08:55 Dose: 50 mg Documented by: Senna (Sennosides 8.6 Mg Tablet) 17.2 mg PO BEDTIME PRN PRN Reason: Constipation Sodium Chloride (0.9 % Sodium Chloride Flush 3 Ml Syringe) 3 ml IVFLUSH QSHIFT [facility] Last Admin: 02/08/21 07:12 Dose: 3 ml Documented by: Home Medications Medication Instructions Recorded Confirmed Last Taken Type albuterol sulfate 90 mcg/actuation 2 puff INHALATION Q4-6H PRN 01/09/20 01/29/21 Unknown History aerosol inhaler (ProAir HFA) omeprazole 20 mg capsule,delayed 20 mg PO BID 01/09/20 01/29/21 Unknown History release donepezil PO DAILY 05/29/20 01/29/21 Unknown History Physical Exam Vital Signs: Vital Signs: Last Vital Signs Temp 98.2 F 02/08/21 02:15 Pulse 85 02/08/21 07:05 Resp 26 H 02/08/21 07:43 BP 145/60 H 02/08/21 07:05 Pulse Ox 98 02/08/21 07:05 Oxygen Flow Rate 1 02/07/21 22:39 BMI result Body Mass Index 30.7 Const: Other: 85 years old gentleman, of a thin build, looks comfortable, he is able to converse in short sentences, But cannot do any meaningful conversation. General: comfortable, no acute distress, alert and awake HENMT: Other: Tongue is dry, no mucopurulent secretions in the oropharynx. Head: Yes normal to inspection General nose exam: No nasal polyps present and No nasal discharge present Face and sinus: Yes sinuses nontender Mouth: oropharynx normal Throat: Yes posterior oropharynx normal Eyes: General: appearance normal, both eyes and all related structures Neck: Neck: Yes normal visual inspection, Yes no lymphadenopathy, Yes trachea midline and Yes no JVD Thyroid: Thyroid normal Chest: Chest palpation & inspection: normal inspection of the chest, normal palpation of entire chest wall and no tenderness Resp: Other: Percussion note is resonant, breath sounds are distant, there are inspiratory crackles scattered throughout the chest more marked on the right side. No wheezes. Cardio: Palpation: normal PMI Rate: regular rate Rhythm: regular rhythm Heart sounds: no gallops and no murmurs Peripheral pulses: Peripheral pulses 2+ throughout GI: Palpation (GI): Soft to palpation, nontender, No hepatosplenomegaly present and no masses Auscultation: normal bowel sounds Back/Spine/Pelvis: Other: Could not examine Thoracic/Lumbar Spine: thoracic and lumbar spine normal to inspection Skin: General skin exam: no rashes or lesions noted Neuro: Other: Patient is slightly slow in conversation, orientation could not be tested General: no focal motor deficits Cranial nerves: Yes CN's II-XII intact bilaterally Extrem: General: Yes normal to inspection, Yes no clubbing, cyanosis or edema and Yes no calf tenderness Psych: Speech and movement: Normal speech and movement present Results Laboratory Findings CBC and BMP: 02/08/21 05:37 02/08/21 05:37 Abnormal lab findings: Abnormal Labs 02/07/21 02/07/21 02/07/21 23:32 23:32 23:32 RBC 4.08 L Hgb 12.7 L Hct 40.2 L MCV 98.5 H MPV 12.6 H Immature Gran % (Auto) 0.8 H Neut % (Auto) Lymph % (Auto) [place] % (Auto) 11.6 H Lymph # (Auto) Abs Immat Gran (auto) 0.09 H Absolute Neuts (auto) VBG HCO3 Chloride Carbon Dioxide BUN 35 H Random Glucose Lactic Acid B-Natriuretic Peptide 624 H 02/07/21 02/08/21 02/08/21 23:32 04:38 05:37 RBC 3.83 L Hgb 11.9 L Hct 37.9 L MCV 99.0 H MPV Immature Gran % (Auto) 0.8 H Neut % (Auto) 87.9 H Lymph % (Auto) 8.1 L [place] % (Auto) Lymph # (Auto) 0.8 L Abs Immat Gran (auto) 0.08 H Absolute Neuts (auto) 8.9 H VBG HCO3 19 L Chloride Carbon Dioxide BUN Random Glucose Lactic Acid 2.2 H* B-Natriuretic Peptide 02/08/21 05:37 RBC Hgb Hct MCV MPV Immature Gran % (Auto) Neut % (Auto) Lymph % (Auto) [place] % (Auto) Lymph # (Auto) Abs Immat Gran (auto) Absolute Neuts (auto) VBG HCO3 Chloride 109 H Carbon Dioxide 20 L BUN 30 H Random Glucose 153 H D Lactic Acid B-Natriuretic Peptide Diagnostic Findings Chest x-ray: report reviewed and image reviewed Assessment and Plan (1) Pneumonia: Qualifiers: Laterality: bilateral Lung location: lower lobe of lung Pneumonia type: due to unspecified organism Qualified Code(s): J18.9 - Pneumonia, unspecified organism Status: Acute (2) COPD (chronic obstructive pulmonary disease): Qualifiers: COPD type: chronic bronchitis Chronic bronchitis type: mucopurulent Qualified Code(s): J41.1 - Mucopurulent chronic bronchitis Status: Acute (3) Interstitial lung disease: Status: Acute Possible (4) CHF (congestive heart failure): Status: Acute Acute on Chronic , Possible (5) Acute hypoxemic respiratory failure: Status: Acute This 85 years old gentleman, with past history of chronic obstructive pulmonary disease, but never required O2. Currently comes in with acute exacerbation, has the significant resting hypoxemia, requiring oxygen supplementation. Chest x-ray findings are consistent with, bilateral patchy densities, possible pneumonia, possible congestive heart failure. And also may have some degree of interstitial lung disease. Recc : At this point I think we should treat him with: Antibiotics for possible community-acquired pneumonia, IV Solu-Medrol for 1 or 2 days followed by a short course of prednisone for acute exacerbation of COPD. DuoNeb updrafts Q 4-6 hours while awake and p.r.n.. O2 2-3 L/minute to keep O2 sat above 90%. Mild diuresis may be helpful, and also patient should be evaluated for underlying cardiac disease, with an echocardiogram. At some point patient should have CT scan of the chest. To evaluate for interstitial lung disease. Procedures Date of Service Date of Service: 02/08/21
[2021-02-08] MEDS: iohexoL 350 MG/ML 100 ML INFUS..BTL 65 ML IV (10:05)
--- NOTE | 2021-02-08 15:41 | MHC.SL.SWA ---
Speech Pathologist Impression: Oralpharyngeal Dysphagia Risk of Aspiration Due to: History of Pneumonia Dysphasia Diet Status: Downgrade Liquid Consistency and Strategies for Safe Swallow: Liquid Intake Recommendation: Thin Liquid Intake Strategies: Small Sips Solid Food Consistency: Dietary Recommendations: Chopped/Advanced (NDD3) Additional Modifications to Solid Foods: Patient reports difficulty swallowing certain foods, such as meats. Oral phase characterized by prolonged mastication secondary to limited dentition and mild residue. Dry swallow and liquid wash effective in clearing residue. Timely swallow trigger and mildly reduced laryngeal elevation. Recommend CHOPPED/ADVANCED (NDD3) solids, THIN liquids, and pills WHOLE in PUREE or LIQUID per patient preference. Aspiration precautions apply. MACHINIST MATE will continue to follow. Oral Medication Intake: Whole with Liquid Compensatory Strategies and Precautions to be Taken for Safe Swallow: Sitting Upright (90 deg) Double Swallow Small Bites and Sips Alternate Liquids/Solids Rate of Ingestion Change Avoid Specific Foods Supervision While Eating and Drinking for Safe Swallow: Intermittent Supervision Foods to Avoid: Avoid tough, difficult to chew solids Swallowing Recommended Treatments: Compens. Strategy Educat. Recommendation for Speech: Inpatient Speech Therapy Group Social Worker Clinican/Clinical Fellow: Yes: Tiara Cardenas Supervisory Statement: I have reviewed and agree with the student/clinical fellow's documentation: N/A Speech Language Pathologist: Brandie Tavarez M.A., CCC-MACHINIST MATE
--- NOTE | 2021-02-08 16:52 | P.EN_ITS ---
Event Note Date of Service: 02/08/21 Event Note: 85-year-old male admitted overnight with diagnosis of pneumonia e xacerbating COPD. Chart reviewed patient examined; exam unchanged from initial. In the ER, developed acute respiratory distress requiring BiPAP which was self- limited. As morning progressed, he was titrated to nasal cannula and has remained with acceptable sats the resting comfortably. Speech eval noted diet changed appropriately. Continue plan as ordered
[2021-02-09] VITALS (7 sets, daily range): BP systolic 115–135; BP diastolic 53–88; PULSE 69–93; RESP 20; TEMP 36.1–37; O2SAT 90–97
[2021-02-09] MEDS: Haloperidol Lactate 5 MG/ML VIAL 2.5 MG IVPUSH (03:25)
[2021-02-09] MEDS: diphenhydrAMINE HCL 50 MG/ML VIAL 25 MG IVPUSH (04:13)
--- NOTE | 2021-02-09 06:24 | PC.NURSE ---
At around 0310 noise came from patient room and found patient on the floor. Patient was laying on his left side. With a few tries patient was able to stand up and go back to the bed. Overnight hospitalist was notified prior fall of patients increased agitation, restlessness, and that the VMT was often statting him. An order for Haldol was put in but there was a delay when it came to verifying the medication when it came to pharmacy's end. The nursing steam powerplant supervisor and hospitalist were notified on the fall. patient was still agitated and made multiple attempts to exit the bed. Patient was given Haldol at 3:25am and then a later order of Benadryl was ordered and administered. Patient also got assigned a one on one sitter for safety.
[2021-02-09 07:03] LABS: MANUAL DIFF FLAG NO
[2021-02-09 07:07] LABS: Basophils Percent Auto 0.1 % (0-2); Hematocrit 35.8 % (42.0-52.0); Hemoglobin 11.3 g/dl (14.0-18.0); Imm Gran Abs Auto 0.21 X10*3/uL (0.00-0.03); Imm Gran Pct Auto 1.5 % (0.0-0.4); Lymphocytes Absolute Auto 0.9 X10*3/uL (1.2-4.9); Mean Corpuscular HGB Conc 31.6 g/dl (31.0-36.0); Mean Corpuscular Hemoglobin 30.4 pg (27.0-33.0); Mean Corpuscular Volume 96.2 fL (80.0-98.0); Mean Platelet Volume 12.5 fL (9.4-12.4); Monocytes Absolute Auto 0.9 X10*3/uL (0.1-1.2); Monocytes Percent Auto 6.4 % (2-11); Neutrophils Absolute Auto 12.2 x10*3/uL (2.0-8.3); Platelet Count 169 X10*3/uL (160-400); Red Blood Count 3.72 X10*6/uL (4.60-5.80); Red Cell Distribution Width 14.9 % (11.0-16.0); White Blood Count 14.2 X10*3/uL (4.8-10.8)
[2021-02-09 07:28] LABS: Alanine Aminotransferase 13 U/L (0-40); Albumin Level 3.6 g/dL (3.5-5.0); Alkaline Phosphatase 89 U/L (39-117); Anion Gap 16 (12-20); Aspartate Amino Transferase 20 U/L (5-37); Bilirubin Total 0.4 mg/dL (0.0-1.0); Blood Urea Nitrogen 37 mg/dL (9-16); Calcium 8.7 mg/dL (8.4-10.2); Carbon Dioxide 19 mmol/L (22-29); Chloride 106 mmol/L (96-108); Creatinine Clr Calc Pharmacy 48.7; Estimated Glomerular Filt Rate > 60; Glucose Fasting 148 mg/dL (60-99); Potassium 4.2 mmol/L (3.3-5.1); Sodium 137 mmol/L (135-145)
--- NOTE | 2021-02-09 09:20 | P.CDIC_ITS ---
CDI Concurrent Query Documentation Clarification: PHYSICIAN'S DOCUMENTATION REQUEST Date of Query: 02/09/21920 Patient Name: Marco Kelly Admit Date: 02/08/21 Dear Doctor, A review of the medical record indicates additional documentation may be needed. Please review below and update the documentation accordingly. Clinical Indicators: Risk Factors/Clinical Indicators/Treatments Acute hypoxic respiratory failure multifactorial - CHF vs. COPD vs. PNA. BNP 624 H IV lasix Echo performed. Please provide further specificity regarding the most likely type and acuity of CHF you are evaluating, treating, or monitoring. Examples include: Type: * Systolic * Diastolic * Combined Systolic/Diastolic * Other ? please specify * Unable to determine Acuity: * Acute * Chronic * Acute on chronic * Unable to determine Use of terms such as suspected, likely, concern for, or probable (associated with a specific diagnosis that is being evaluated, monitored, or treated as if it exists) are acceptable and can be coded in the inpatient setting, when documented at the time of discharge. Thank you, Amirah Christine [facility], CDIS Extension: [phone] Please use your independent medical judgment in providing your response. THIS QUERY IS PART OF THE PERMANENT MEDICAL RECORD Provider Response: Other Other Diagnosis: Unable to determine
--- NOTE | 2021-02-09 10:13 | MHC.CLN ---
RE: WT LOSS PT REPORTS WT LOSS 34# OR GREATER PER NSG ADMISSION ASSESSMENT PREVIOUS WT HX REVEALS: CURRENT WT 72.8KG (02/08/21) 68KG (11/25/20) 67.4KG (05/29/20) 81.8KG (04/2018) PT WITH 7% GAIN X 90DAYS, 8% GAIN X 8 MONTHS AND 11% NONSIGNIFICANT WT LOSS X 2 YEARS PT CURRENTLY WITHOUT SIGNIFICANT WT LOSS; BMI 25.4 WNL REVIEWED LABS DIET RX: 2GM NA CHOPPED-RECOMMEND LIBERLIZING DIET TO REGULAR R/T ADVANCED AGE AND RECENT POOR PO INTAKE MONITOR PO INTAKE CLOSELY WILL CHANGE DIET TO REGULAR CHOPPED
[2021-02-09] MEDS: Donepezil HCl 5 MG TABLET PO (10:46)
[2021-02-09] MEDS: Escitalopram Oxalate 10 MG TABLET PO (10:46)
[2021-02-09] MEDS: Metoprolol Succinate ER 50 MG TAB.ER.24H PO (10:46)
[2021-02-09] MEDS: methylPREDNISolone Sod Succ 40 MG/ML VIAL IVPUSH ×2 (10:50→18:14)
[2021-02-09] MEDS: 0.9 % Sodium Chloride Flush 3 ML SYRINGE IVFLUSH ×3 (10:51→22:22)
--- NOTE | 2021-02-09 12:26 | MHC.CM.PN ---
spoke with pts with whom he lives she explins that they had no servceis prior to admisison but is requesti rick ratliff lives nearby and visits daily..dc plan home with [facility] ..dgter will transport home
--- NOTE | 2021-02-09 16:28 | P.PNIM_ITS ---
Subjective Subjective Date of Service: 02/09/21 Interval History: No acute issues overnight. States breathing somewhat better Review of Systems Denies chest pain Denies shortness of breath Denies nausea vomiting diarrhea Physical Exam Vital Signs: Vital Signs: Last Vital Signs Temp 97.7 F 02/09/21 15:39 Pulse 69 02/09/21 15:39 Resp 20 02/09/21 15:39 BP 115/62 02/09/21 15:39 Pulse Ox 96 02/09/21 15:39 Oxygen Flow Rate 1 02/07/21 22:39 BMI result Body Mass Index 25.9 Const: Other: Awake alert able to speak in short sentences while lying at 30 degrees Resp: Other: Bilateral basal end inspiratory crackles diminished at bases no rales rhonchi wheezes Cardio: Other: Distant heart sounds; no S4; positive S1-S2; no S3 murmurs rubs or gallops Extrem: Other: No edema bilaterally Objective Data Active Medications Acetaminophen (Acetaminophen 325 Mg Tablet) 650 mg PO Q6H PRN PRN Reason: Pain, Mild (Pain Scale 1-3) Albuterol/Ipratropium (Albuterol/Iprat 2.5/0.5mg 3 Ml Ampul.Neb) 3 ml INHALE RQ4H PRN PRN Reason: Shortness of Breath/Wheezing Last Admin: 02/08/21 04:17 Dose: 3 ml Documented by: ALEKSANDER Donepezil HCl (Donepezil Hcl 5 Mg Tablet) 5 mg PO DAILY [facility] Last Admin: 02/09/21 10:46 Dose: 5 mg Documented by: SAUL Escitalopram Oxalate (Escitalopram Oxalate 10 Mg Tablet) 10 mg PO DAILY [facility] Last Admin: 02/09/21 10:46 Dose: 10 mg Documented by: SAUL Ceftriaxone Sodium 1 gm/ (Sodium Chloride) 50 mls @ 100 mls/hr IV Q24H [facility] Last Infusion: 02/09/21 00:09 Dose: 0 mls/hr Documented by: JAM Azithromycin 500 mg/ Sodium (Chloride) 250 mls @ 125 mls/hr IV Q24H [facility] Last Infusion: 02/09/21 02:14 Dose: 0 mls/hr Documented by: JAM Melatonin (Melatonin 3 Mg Tablet) 6 mg PO BEDTIME PRN PRN Reason: Insomnia Methylprednisolone Sodium Succinate (Methylprednisolone Sod Succ 40 Mg/Ml Vial) 40 mg IVPUSH Q8H [facility] Last Admin: 02/09/21 10:50 Dose: 40 mg Documented by: SAUL Metoprolol Succinate (Metoprolol Succinate Er 50 Mg Tab.Er.24h) 50 mg PO DAILY [facility]; Protocol Last Admin: 02/09/21 10:46 Dose: 50 mg Documented by: SAUL Senna (Sennosides 8.6 Mg Tablet) 17.2 mg PO BEDTIME PRN PRN Reason: Constipation Sodium Chloride (0.9 % Sodium Chloride Flush 3 Ml Syringe) 3 ml IVFLUSH QSHIFT [facility] Last Admin: 02/09/21 10:51 Dose: 3 ml Documented by: SAUL Labs CBC & Chem 7: 02/09/21 06:26 02/09/21 06:26 Labs: Laboratory Results - last 24 hr 02/09/21 02/09/21 06:26 06:26 MCV 96.2 MCH 30.4 MCHC 31.6 RDW 14.9 Plt Count 169 MPV 12.5 H Immature Gran % (Auto) 1.5 H Neut % (Auto) 86.0 H Lymph % (Auto) 6.0 L [place] % (Auto) 6.4 Eos % (Auto) 0.0 Baso % (Auto) 0.1 Lymph # (Auto) 0.9 L [place] # (Auto) 0.9 Eos # (Auto) 0.0 Baso # (Auto) 0.0 Abs Immat Gran (auto) 0.21 H Absolute Neuts (auto) 12.2 H Absolute Nucleated RBC 0.000 Nucleated RBC % (auto) 0.0 Anion Gap 16 Estim Creat Clear Calc 48.7 Estimated GFR > 60 Fasting Glucose 148 H Calcium 8.7 Total Bilirubin 0.4 AST 20 D ALT 13 Alkaline Phosphatase 89 Total Protein 7.0 Albumin 3.6 Microbiology Microbiology Results: Microbiology 02/08/21 01:39 Blood Culture - Preliminary Blood - Venous No growth after 24 hours. 02/07/21 23:32 Blood Culture - Preliminary Blood - Venous No growth after 24 hours. Assessment and Plan (1) Interstitial lung disease: Status: Acute (2) Pneumonia: Status: Acute Assessment and Plan: 85-year-old male with a past medical history of hypertension, hyperlipidemia, COPD-not on home oxygen, dementia presented to the hospital from home with a chief complaint of shortness of breath. . Likely pneumonia on CT 1.Acute hypoxic respiratory failure Echo with normal EF. Likely related to pneumonia Continue Azithro/CTX Titrate O2 as tolerated 2. COPD Exacerbated by above Plan as ordered.Add nebs prn 3.Dementia Continue Aricept as per outpatient 4.Hypertension Continue home metoprolol / amlodipine 5.GERD Continue home PPI DVT prophylaxis: SCD boots Code status: Full code Quality Stroke Does the patient have a stroke diagnosis?: No VTE Prior VTE?: No VTE Risk Level:: Medical - moderate - high VTE Device Contraindication: N/A - Device Ordered VTE Drug Contraindication: Treatment Not Indicated
--- NOTE | 2021-02-09 18:07 | MHC.SL.SWA ---
Speech Pathologist Impression: Oralpharyngeal Dysphagia Risk of Aspiration Due to: History of Pneumonia Dysphasia Diet Status: Downgrade Liquid Consistency and Strategies for Safe Swallow: Liquid Intake Recommendation: [place] Thick Liquid Intake Strategies: Liquids by Teaspoon Only Solid Food Consistency: Dietary Recommendations: Chopped/Advanced (NDD3) DOWNGRADE to NECTAR THICK liquids with pills CRUSHED IN PUREE Additional Modifications to Solid Foods: Pt presented today with clinical signs of aspiration on thin liquid. On nectar thick liquid, puree by tsp, pt had adequate oral transit/swallow time and mildly reduced laryngeal elevation on swallow. Recommend continue CHOPPED/ADVANCED (NDD3) solids, DOWNGRADE to NECTAR THICK liquids with pills CRUSHED IN PUREE. MD, Corral Boss, Nursing notified of change by secure text. Oral Medication Intake: Crushed with Puree Compensatory Strategies and Precautions to be Taken for Safe Swallow: Sitting Upright (90 deg) Menselsohn Maneuver Liquids from Spoon Alternate Liquids/Solids Supervision While Eating and Drinking for Safe Swallow: Total Supervision (1:1) Foods to Avoid: Pt will need 1-1 supervision and assistance during meals, with close monitor for signs of aspiration, Swallowing Recommended Treatments: Compens. Strategy Educat. Recommendation for Speech: Inpatient Speech Therapy Comment: Patient presented with clinical signs of aspiration on thin liquids on re-assessment this a.m. Tolerated nectar thick liquid and soft solids with good oral transit and mildly reduced laryngeal elevation on swallow on all consistencies. Recommend DOWNGRADE to NECTAR THICK liquids, continue CHOPPED/ADVANCED (NDD3) solids, and DOWNGRADE pills CRUSHED in PUREE. Recommend 1-1 Supervision during meals, with close monitor for signs of aspiration. Frequency/Duration: Date Range for Service Req: Timeline to reassess: Bpm Developer Clinican/Clinical Fellow: No Supervisory Statement: I have reviewed and agree with the student/clinical fellow's documentation: N/A Speech Language Pathologist: Shelbi Elizalde M.A., CCC-ONLINE MEDIA BUYER
[2021-02-09] MEDS: cefTRIAXone sodium 1 GM in 0.9 % Sodium Chloride 50 ML IV (22:20)
[2021-02-09] MEDS: Azithromycin 500 MG in 0.9 % Sodium Chloride 250 ML 125 MG IV (22:57)
[2021-02-10] VITALS (7 sets, daily range): BP systolic 111–154; BP diastolic 51–69; PULSE 78–91; RESP 18–20; TEMP 36.1–37; O2SAT 90–96
[2021-02-10] MEDS: methylPREDNISolone Sod Succ 40 MG/ML VIAL IVPUSH ×3 (00:59→17:01)
[2021-02-10 07:35] LABS: MANUAL DIFF FLAG NO
[2021-02-10] MEDS: Donepezil HCl 5 MG TABLET PO (07:36)
[2021-02-10] MEDS: Escitalopram Oxalate 10 MG TABLET PO (07:36)
[2021-02-10] MEDS: Metoprolol Succinate ER 50 MG TAB.ER.24H PO (07:36)
[2021-02-10] MEDS: 0.9 % Sodium Chloride Flush 3 ML SYRINGE IVFLUSH ×2 (07:37→17:01)
[2021-02-10 08:06] LABS: Alanine Aminotransferase 30 U/L (0-40); Albumin Level 3.7 g/dL (3.5-5.0); Alkaline Phosphatase 81 U/L (39-117); Anion Gap 14 (12-20); Aspartate Amino Transferase 36 U/L (5-37); Bilirubin Total 0.5 mg/dL (0.0-1.0); Blood Urea Nitrogen 47 mg/dL (9-16); Calcium 8.8 mg/dL (8.4-10.2); Carbon Dioxide 20 mmol/L (22-29); Chloride 111 mmol/L (96-108); Creatinine Clr Calc Pharmacy 45.9; Estimated Glomerular Filt Rate > 60; Glucose Fasting 150 mg/dL (60-99); Potassium 4.5 mmol/L (3.3-5.1); Sodium 140 mmol/L (135-145); Total Protein 6.9 g/dL (6.5-8.0)
[2021-02-10 08:16] LABS: Basophils Percent Auto 0.1 % (0-2); Hematocrit 36.4 % (42.0-52.0); Hemoglobin 11.6 g/dl (14.0-18.0); Imm Gran Abs Auto 0.14 X10*3/uL (0.00-0.03); Lymphocytes Absolute Auto 0.9 X10*3/uL (1.2-4.9); Lymphocytes Percent Auto 6.4 % (20-40); Mean Corpuscular HGB Conc 31.9 g/dl (31.0-36.0); Mean Corpuscular Hemoglobin 31.2 pg (27.0-33.0); Mean Corpuscular Volume 97.8 fL (80.0-98.0); Mean Platelet Volume 12.8 fL (9.4-12.4); Monocytes Absolute Auto 0.6 X10*3/uL (0.1-1.2); Monocytes Percent Auto 4.5 % (2-11); Neutrophils Absolute Auto 11.8 x10*3/uL (2.0-8.3); Platelet Count 177 X10*3/uL (160-400); Red Blood Count 3.72 X10*6/uL (4.60-5.80); Red Cell Distribution Width 15.2 % (11.0-16.0); White Blood Count 13.4 X10*3/uL (4.8-10.8)
--- NOTE | 2021-02-10 09:21 | P.PNPL_ITS ---
Subjective Subjective Date of Service: 02/10/21 Principal diagnosis: COPD EXCARBATION/PNEUMONIA Interval history: This gentleman is improving. He remains afebrile, breathing is better, has mild intermittent cough. Still requires oxygen 3 L/minute. He has become more alert, and converses well. He has been a smoker up until his admission, now he has no urge to smoke. Objective Data Labs CBC & Chem 7: 02/10/21 06:28 02/10/21 06:28 Labs: Laboratory Results - last 24 hr 02/10/21 02/10/21 06:28 06:28 WBC 13.4 H RBC 3.72 L Hgb 11.6 L Hct 36.4 L MCV 97.8 MCH 31.2 MCHC 31.9 RDW 15.2 Plt Count 177 MPV 12.8 H Immature Gran % (Auto) 1.0 H Neut % (Auto) 88.0 H Lymph % (Auto) 6.4 L [place] % (Auto) 4.5 Eos % (Auto) 0.0 Baso % (Auto) 0.1 Lymph # (Auto) 0.9 L [place] # (Auto) 0.6 Eos # (Auto) 0.0 Baso # (Auto) 0.0 Abs Immat Gran (auto) 0.14 H Absolute Neuts (auto) 11.8 H Absolute Nucleated RBC 0.000 Nucleated RBC % (auto) 0.0 Sodium 140 Potassium 4.5 Chloride 111 H Carbon Dioxide 20 L Anion Gap 14 BUN 47 H Creatinine 1.06 Estim Creat Clear Calc 45.9 Estimated GFR > 60 Fasting Glucose 150 H Calcium 8.8 Total Bilirubin 0.5 AST 36 D ALT 30 Alkaline Phosphatase 81 Total Protein 6.[address] scan - chest: My impression: Pulmonary emphysema, interstitial lung disease, chronic. Acute pneumonia. Mass left lower lobe most likely rounded atelectasis/pneumonia, neoplastic process cannot be ruled out. Microbiology Microbiology Results: Microbiology 02/08/21 01:39 Blood - Venous Blood Culture - Preliminary No growth after 48 hours. 02/07/21 23:32 Blood - Venous Blood Culture - Preliminary No growth after 48 hours. Physical Exam Vital Signs: Vital Signs: Last Vital Signs Temp 97.8 F 02/10/21 07:08 Pulse 78 02/10/21 07:08 Resp 20 02/10/21 07:08 BP 132/64 02/10/21 07:08 Pulse Ox 96 02/10/21 07:08 Oxygen Flow Rate 1 02/07/21 22:39 BMI result Body Mass Index 25.9 Const: Other: More alert and talking sense ability, does not seem to be in any distress HENMT: Other: Throat is clear no mucopurulent secretions, no thrush Chest: Chest palpation & inspection: normal inspection of the chest, normal palpation of entire chest wall and no tenderness Resp: Other: He does have good breath sounds on both sides with prolonged expiratory phase. The scattered inspiratory crackles over the lower lobes, more pronounced on the left base. Cardio: Rate: regular rate Rhythm: regular rhythm Heart sounds: no gallops and no murmurs Procedures Date of Service Date of Service: 02/10/21 Assessment and Plan Assessment and plan (1) Pneumonia: Problem details: Patient was admitted with the, symptoms of acute respiratory infection. Initially he seemed to have, diffuse pneumonitis involving both lungs. In left lobe over which may be rounded consolidation Patient is responding to the antibiotic therapy, his disease processes more pronounced in the left lower lobe at this time. I recommend that we continue with the antibiotic therapy at this time, to complete the course. Status: Acute (2) Acute hypoxemic respiratory failure: Problem details: Patient has required oxygen supplementation, now he is doing well with the O2 3 L/minute. As he is a improving we should try to wean him off O2 , but most likely he is going to need O2 even when he goes home. Status: Acute (3) COPD with acute exacerbation: Problem details: He has clinical picture and radiologic picture of diffuse emphysema, and also fibrotic changes in both lungs due to chronic ILD/Fibrosis . At this time he is being treated for an acute exacerbation with the IV steroids, antibiotics, DuoNeb updrafts. And O2. IV Solu-Medrol could be changed to oral prednisone at 40 mg a day, with is slow taper over the next couple of weeks. He should continue with in DuoNeb updrafts q.6 hours while awake. Once he has recovered completely he would need a full pulmonary evaluation as outpatient. Status: Acute (4) Interstitial lung disease: Problem details: His radiologic picture does suggest chronic fibrotic process. We would need to do a high-resolution CT scan, as outpatient to further define his chronic interstitial disease. Status: Acute (5) Mass in chest: Problem details: CTA of the chest, shows a mass in left lower lobe, which could be a rounded atelectasis/pneumonia. But possibility of neoplasm cannot be ruled out. Recc . Once the pneumonia is the treated, and patient is in stable condition, he should have a repeat CT scan of the chest with high-resolution, and take it from there. Status: Acute Time Spent With Patient Time: Total time spent is greater than 50% in coordination of care (as documented) at patient's floor/unit and/or counseling patient: Time with patient: 15 - 24 minutes Progress Note: Quality Stroke Does the patient have a stroke diagnosis?: No
--- NOTE | 2021-02-10 13:37 | MHC.CM.PN ---
per rounds no dc date at this time dc plan remains home
--- NOTE | 2021-02-10 13:39 | MHC.SL.SWA ---
Speech Pathologist Impression: Oralpharyngeal Dysphagia Risk of Aspiration Due to: History of Pneumonia Dysphasia Diet Status: No Change Liquid Consistency and Strategies for Safe Swallow: Liquid Intake Recommendation: [place] Thick Liquid Intake Strategies: Small Sips No Straws Solid Food Consistency: Dietary Recommendations: Chopped/Advanced (NDD3) Additional Modifications to Solid Foods: Recommend continue CHOPPED/ADVANCED (NDD3) solids and NECTAR THICK liquids with pills CRUSHED in PUREE. Patient is able to feed himself. He is recommended intermittent supervision and strict aspiration precautions. FRONT DESK ADMIN will continue to follow. Diet order updated by FRONT DESK ADMIN this date. Oral Medication Intake: Crushed with Puree Compensatory Strategies and Precautions to be Taken for Safe Swallow: Sitting Upright (90 deg) No Straw Small Bites and Sips Alternate Liquids/Solids Rate of Ingestion Change Supervision While Eating and Drinking for Safe Swallow: Intermittent Supervision Foods to Avoid: Pt will need intermittent supervision with close monitor for signs of aspiration Swallowing Recommended Treatments: Compens. Strategy Educat. Recommendation for Speech: Inpatient Speech Therapy Field Organizer Clinican/Clinical Fellow: Yes: Tiara Cardenas Supervisory Statement: I have reviewed and agree with the student/clinical fellow's documentation: Yes Speech Language Pathologist: Brandie Tavarez M.A., CCC-FRONT DESK ADMIN
--- NOTE | 2021-02-10 14:24 | P.PNIM_ITS ---
Subjective Subjective Date of Service: 02/10/21 Interval History: Slowly improving; still with O2 requirement. Review of Systems Denies chest pain Denies shortness of breath Denies nausea vomiting diarrhea Physical Exam Vital Signs: Vital Signs: Last Vital Signs Temp 97 F 02/10/21 10:59 Pulse 86 02/10/21 10:59 Resp 18 02/10/21 10:59 BP 154/69 H 02/10/21 10:59 Pulse Ox 90 L 02/10/21 10:59 Oxygen Flow Rate 1 02/07/21 22:39 BMI result Body Mass Index 25.9 Const: Other: Awake alert able to speak in short sentences while lying at 30 degrees Resp: Other: Bilateral basal end inspiratory crackles diminished at bases no rales rhonchi wheezes Cardio: Other: Distant heart sounds; no S4; positive S1-S2; no S3 murmurs rubs or gallops Extrem: Other: No edema bilaterally Objective Data Active Medications Acetaminophen (Acetaminophen 325 Mg Tablet) 650 mg PO Q6H PRN PRN Reason: Pain, Mild (Pain Scale 1-3) Albuterol/Ipratropium (Albuterol/Iprat 2.5/0.5mg 3 Ml Ampul.Neb) 3 ml INHALE RQ4H PRN PRN Reason: Shortness of Breath/Wheezing Last Admin: 02/08/21 04:17 Dose: 3 ml Documented by: ALEKSANDER Donepezil HCl (Donepezil Hcl 5 Mg Tablet) 5 mg PO DAILY [facility] Last Admin: 02/10/21 07:36 Dose: 5 mg Documented by: YESENIA Escitalopram Oxalate (Escitalopram Oxalate 10 Mg Tablet) 10 mg PO DAILY [facility] Last Admin: 02/10/21 07:36 Dose: 10 mg Documented by: YESENIA Ceftriaxone Sodium 1 gm/ (Sodium Chloride) 50 mls @ 100 mls/hr IV Q24H [facility] Last Infusion: 02/09/21 23:00 Dose: 0 mls/hr Documented by: JAM Azithromycin 500 mg/ Sodium (Chloride) 250 mls @ 125 mls/hr IV Q24H [facility] Last Infusion: 02/10/21 01:00 Dose: 0 mls/hr Documented by: JAM Melatonin (Melatonin 3 Mg Tablet) 6 mg PO BEDTIME PRN PRN Reason: Insomnia Methylprednisolone Sodium Succinate (Methylprednisolone Sod Succ 40 Mg/Ml Vial) 40 mg IVPUSH Q8H [facility] Last Admin: 02/10/21 07:37 Dose: 40 mg Documented by: YESENIA Metoprolol Succinate (Metoprolol Succinate Er 50 Mg Tab.Er.24h) 50 mg PO DAILY [facility]; Protocol Last Admin: 02/10/21 07:36 Dose: 50 mg Documented by: YESENIA Senna (Sennosides 8.6 Mg Tablet) 17.2 mg PO BEDTIME PRN PRN Reason: Constipation Sodium Chloride (0.9 % Sodium Chloride Flush 3 Ml Syringe) 3 ml IVFLUSH QSHIFT [facility] Last Admin: 02/10/21 07:37 Dose: 3 ml Documented by: YESENIA Labs CBC & Chem 7: 02/10/21 06:28 02/10/21 06:28 Labs: Laboratory Results - last 24 hr 02/07/21 02/08/21 02/09/21 23:32 05:37 06:26 WBC 10.6 10.1 14.2 H MCV MCH MCHC RDW Plt Count MPV Immature Gran % (Auto) Neut % (Auto) Lymph % (Auto) [place] % (Auto) Eos % (Auto) Baso % (Auto) Lymph # (Auto) [place] # (Auto) Eos # (Auto) Baso # (Auto) Abs Immat Gran (auto) Absolute Neuts (auto) Absolute Nucleated RBC Nucleated RBC % (auto) Anion Gap Estim Creat Clear Calc Estimated GFR Fasting Glucose Calcium Total Bilirubin AST ALT Alkaline Phosphatase Total Protein Albumin 02/10/21 02/10/21 06:28 06:28 WBC 13.4 H MCV 97.8 MCH 31.2 MCHC 31.9 RDW 15.2 Plt Count 177 MPV 12.8 H Immature Gran % (Auto) 1.0 H Neut % (Auto) 88.0 H Lymph % (Auto) 6.4 L [place] % (Auto) 4.5 Eos % (Auto) 0.0 Baso % (Auto) 0.1 Lymph # (Auto) 0.9 L [place] # (Auto) 0.6 Eos # (Auto) 0.0 Baso # (Auto) 0.0 Abs Immat Gran (auto) 0.14 H Absolute Neuts (auto) 11.8 H Absolute Nucleated RBC 0.000 Nucleated RBC % (auto) 0.0 Anion Gap 14 Estim Creat Clear Calc 45.9 Estimated GFR > 60 Fasting Glucose 150 H Calcium 8.8 Total Bilirubin 0.5 AST 36 D ALT 30 Alkaline Phosphatase 81 Total Protein 6.9 Albumin 3.7 Microbiology Microbiology Results: Microbiology 02/08/21 01:39 Blood Culture - Preliminary Blood - Venous No growth after 48 hours. 02/07/21 23:32 Blood Culture - Preliminary Blood - Venous No growth after 48 hours. Assessment and Plan (1) COPD with acute exacerbation: Status: Acute (2) Interstitial lung disease: Status: Acute (3) Pneumonia: Status: Acute Assessment and Plan: 85-year-old male with a past medical history of hypertension, hyperlipidemia, COPD-not on home oxygen, dementia presented to the hospital from home with a chief complaint of shortness of breath. . Likely pneumonia on CT 1.Acute hypoxic respiratory failure Echo with normal EF. Likely related to pneumonia Continue Azithro/CTX and steroids Titrate O2 as tolerated 2. COPD Exacerbated by above Plan as ordered.Add nebs prn 3.Dementia Continue Aricept as per outpatient Physical therapy consult 4.Hypertension Continue home metoprolol / amlodipine 5.GERD Continue home PPI DVT prophylaxis: SCD boots Code status: Full code Quality Stroke Does the patient have a stroke diagnosis?: No VTE Prior VTE?: No VTE Risk Level:: Medical - moderate - high VTE Device Contraindication: N/A - Device Ordered VTE Drug Contraindication: Treatment Not Indicated
--- NOTE | 2021-02-10 15:35 | MHC.CM.PN ---
MALE 85 dx pna PT jenniferal recommends STR. T/W called the Pts for SNF preferences. She stated that he will not go to a SNF. Home with [facility] is the preference for dispo.
--- NOTE | 2021-02-10 18:14 | P.EN_ITS ---
Event Note Date of Service: 02/10/21 Event Note: Called to pt secondary to increased anxiety secondary to constipat ion. Digitally dis impacted for moderate amoun dry, formed stool. Tolerated fairly well by pt. Fleets ordered for later.
--- NOTE | 2021-02-10 18:24 | PC.NURSE ---
Pt anxious, restless , c/o abdominal cramping, hard stool is coming out fro the rectum. Dr. Brenner was notified ,digital disimpaction was done by MD at the bedside.
[2021-02-10] MEDS: Sodium Phosphate,Mono-Dibasic 133 ML ENEMA PR (19:15)
--- NOTE | 2021-02-10 20:05 | PC.NURSE ---
fleet enema given, no BM
[2021-02-10] MEDS: Sennosides 8.6 MG TABLET 17.2 MG PO (21:01)
[2021-02-10] MEDS: Acetaminophen 325 MG TABLET 650 MG PO (21:01)
[2021-02-10] MEDS: cefTRIAXone sodium 1 GM in 0.9 % Sodium Chloride 50 ML IV (21:02)
[2021-02-10] MEDS: Azithromycin 500 MG in 0.9 % Sodium Chloride 250 ML 125 MG IV (21:55)
[2021-02-11] VITALS (8 sets, daily range): BP systolic 136–170; BP diastolic 61–88; PULSE 78–98; RESP 18–20; TEMP 36.1–36.9; O2SAT 91–97
[2021-02-11] MEDS: Melatonin 3 MG TABLET 6 MG PO ×2 (00:06→22:46)
[2021-02-11] MEDS: 0.9 % Sodium Chloride Flush 3 ML SYRINGE IVFLUSH ×2 (00:08→09:54)
[2021-02-11] MEDS: methylPREDNISolone Sod Succ 40 MG/ML VIAL IVPUSH ×2 (00:08→09:54)
--- NOTE | 2021-02-11 05:15 | PC.NURSE ---
2330; patient incontinent of small loose stool, skin care provided. 0400; patient incontinent small soft brown stool, patient denies any pain or discomfort at this time.
[2021-02-11 07:13] LABS: MANUAL DIFF FLAG NO
[2021-02-11 07:15] LABS: Basophils Percent Auto 0.1 % (0-2); Hematocrit 38.7 % (42.0-52.0); Hemoglobin 12.3 g/dl (14.0-18.0); Imm Gran Abs Auto 0.19 X10*3/uL (0.00-0.03); Imm Gran Pct Auto 1.3 % (0.0-0.4); Lymphocytes Percent Auto 6.5 % (20-40); Mean Corpuscular HGB Conc 31.8 g/dl (31.0-36.0); Mean Corpuscular Hemoglobin 31.1 pg (27.0-33.0); Mean Platelet Volume 12.6 fL (9.4-12.4); Monocytes Absolute Auto 1.2 X10*3/uL (0.1-1.2); Monocytes Percent Auto 8.2 % (2-11); Neutrophils Absolute Auto 12.3 x10*3/uL (2.0-8.3); Neutrophils Percent Auto 83.9 % (45-73); Platelet Count 201 X10*3/uL (160-400); Red Blood Count 3.95 X10*6/uL (4.60-5.80); Red Cell Distribution Width 15.1 % (11.0-16.0); White Blood Count 14.6 X10*3/uL (4.8-10.8)
[2021-02-11 07:51] LABS: Alanine Aminotransferase 54 U/L (0-40); Albumin Level 3.8 g/dL (3.5-5.0); Alkaline Phosphatase 84 U/L (39-117); Anion Gap 14 (12-20); Aspartate Amino Transferase 43 U/L (5-37); Bilirubin Total 0.6 mg/dL (0.0-1.0); Blood Urea Nitrogen 45 mg/dL (9-16); Calcium 8.7 mg/dL (8.4-10.2); Carbon Dioxide 23 mmol/L (22-29); Chloride 110 mmol/L (96-108); Creatinine Clr Calc Pharmacy 48.7; Estimated Glomerular Filt Rate > 60; Glucose Fasting 146 mg/dL (60-99); Potassium 4.5 mmol/L (3.3-5.1); Sodium 142 mmol/L (135-145); Total Protein 7.1 g/dL (6.5-8.0)
[2021-02-11] MEDS: Escitalopram Oxalate 10 MG TABLET PO (09:53)
[2021-02-11] MEDS: Metoprolol Succinate ER 50 MG TAB.ER.24H PO (09:53)
[2021-02-11] MEDS: Donepezil HCl 5 MG TABLET PO (09:53)
--- NOTE | 2021-02-11 11:20 | P.PNIM_ITS ---
Subjective Subjective Date of Service: 02/11/21 Interval History: Late entry note for 02/11 F/u on copd resp failure, remains confused, agitated at time Review of Systems confused no fever Physical Exam Const: Other: Const Other:?Awake alert able to speak in short sentences while lying at 30 degrees Resp Other:?Bilateral basal end inspiratory crackles diminished at bases no rales rhonchi wheezes Cardio Other:?Distant heart sounds; no S4; positive S1-S2; no S3 murmurs rubs or gallops Extrem Other:?No edema bilaterally Objective Data Active Medications Acetaminophen (Acetaminophen 325 Mg Tablet) 650 mg PO Q6H PRN PRN Reason: Pain, Mild (Pain Scale 1-3) Last Admin: 02/10/21 21:01 Dose: 650 mg Documented by: ALEC Albuterol/Ipratropium (Albuterol/Iprat 2.5/0.5mg 3 Ml Ampul.Neb) 3 ml INHALE RQ4H PRN PRN Reason: Shortness of Breath/Wheezing Last Admin: 02/12/21 03:15 Dose: 3 ml Documented by: RUDY Donepezil HCl (Donepezil Hcl 5 Mg Tablet) 5 mg PO DAILY COUNTS INCLUDE 234 BEDS AT THE [facility] Last Admin: 02/12/21 10:04 Dose: 5 mg Documented by: HOMERO Escitalopram Oxalate (Escitalopram Oxalate 10 Mg Tablet) 10 mg PO DAILY COUNTS INCLUDE 234 BEDS AT THE [facility] Last Admin: 02/12/21 10:04 Dose: 10 mg Documented by: HOMERO Ceftriaxone Sodium 1 gm/ (Sodium Chloride) 50 mls @ 100 mls/hr IV Q24H COUNTS INCLUDE 234 BEDS AT THE [facility] Last Infusion: 02/11/21 23:10 Dose: 0 mls/hr Documented by: ALEC Azithromycin 500 mg/ Sodium (Chloride) 250 mls @ 125 mls/hr IV Q24H COUNTS INCLUDE 234 BEDS AT THE [facility] Last Infusion: 02/12/21 01:10 Dose: 0 mls/hr Documented by: MULU Melatonin (Melatonin 3 Mg Tablet) 6 mg PO BEDTIME PRN PRN Reason: Insomnia Last Admin: 02/11/21 22:46 Dose: 6 mg Documented by: ALEC Methylprednisolone Sodium Succinate (Methylprednisolone Sod Succ 40 Mg/Ml Vial) 40 mg IVPUSH Q8H COUNTS INCLUDE 234 BEDS AT THE [facility] Last Admin: 02/12/21 10:05 Dose: 40 mg Documented by: HO.KULOBA Metoprolol Succinate (Metoprolol Succinate Er 50 Mg Tab.Er.24h) 50 mg PO DAILY COUNTS INCLUDE 234 BEDS AT THE [facility]; Protocol Last Admin: 02/12/21 10:04 Dose: 50 mg Documented by: HOMERO Senna (Sennosides 8.6 Mg Tablet) 17.2 mg PO BEDTIME PRN PRN Reason: Constipation Last Admin: 02/11/21 22:21 Dose: 17.2 mg Documented by: ALEC Sodium Biphosphate/Sodium Phosphate (Sodium Phosphate,[place]-Dibasic 133 Ml Enema) 133 ml [place] ONCE PRN PRN Reason: Constipation Last Admin: 02/10/21 19:15 Dose: 133 ml Documented by: ROSE MARIE Sodium Chloride (0.9 % Sodium Chloride Flush 3 Ml Syringe) 3 ml IVFLUSH QSHIFT COUNTS INCLUDE 234 BEDS AT THE [facility] Last Admin: 02/12/21 10:04 Dose: 3 ml Documented by: HOMERO Labs CBC & Chem 7: 02/11/21 06:30 02/11/21 06:30 Labs: Laboratory Results - last 24 hr 02/12/21 10:14 O2 Saturation 97.0 ABG pH at Pt Temp 7.49 H ABG pH (Temp Correct) 7.48 H ABG pCO2 at Pt Temp 29 L ABG pCO2 (Temp Corrct 29 L ABG pO2 at Pt Temp 86 ABG pO2 (Temp Correct 87 ABG HCO3 22 ABG Base Excess (Actual) 0.0 Assessment and Plan (1) COPD with acute exacerbation: Status: Acute (2) Interstitial lung disease: Status: Acute (3) Pneumonia: Status: Acute Assessment and Plan: 85-year-old male with a past medical history of hypertension, hyperlipidemia, COPD-not on home oxygen, dementia presented to the hospital from home with a chief complaint of shortness of breath. . Likely pneumonia on CT 1.Acute hypoxic respiratory failure Likely related to pneumonia Continue Azithro/CTX and steroids Titrate O2 as tolerated 2. COPD--continue O2, steroid and bronchodilators 3.Dementia--continue arricecpt 4.Hypertension Continue home metoprolol / amlodipine 5.GERD Continue home PPI DVT prophylaxis: SCD boots Code status: Full code late entry note for 02/11 Quality Stroke Does the patient have a stroke diagnosis?: No VTE Prior VTE?: No VTE Risk Level:: Medical - moderate - high VTE Device Contraindication: N/A - Device Ordered VTE Drug Contraindication: Treatment Not Indicated
--- NOTE | 2021-02-11 11:26 | MHC.SL.SWA ---
Speech Pathologist Impression: Oralpharyngeal Dysphagia Risk of Aspiration Due to: History of Pneumonia Dysphasia Diet Status: Downgrade Liquid Consistency and Strategies for Safe Swallow: Liquid Intake Recommendation: [place] Thick Liquid Intake Strategies: Small Sips No Straws Solid Food Consistency: Dietary Recommendations: Chopped/Advanced (NDD3) Additional Modifications to Solid Foods: Recommend continue CHOPPED/ADVANCED (NDD3) solids and NECTAR THICK liquids with pills CRUSHED in PUREE. Patient is able to feed himself, but due to impulsivity and hx aspiration, recommend 1-1 supervision and strict aspiration precautions. SENIOR ENERGY MARKET COORDINATOR will continue to follow. Oral Medication Intake: Crushed with Puree Compensatory Strategies and Precautions to be Taken for Safe Swallow: Sitting Upright (90 deg) No Straw Small Bites and Sips Alternate Liquids/Solids Rate of Ingestion Change Supervision While Eating and Drinking for Safe Swallow: Total Supervision (1:1) Foods to Avoid: Pt will need intermittent supervision with close monitor for signs of aspiration Swallowing Recommended Treatments: Compens. Strategy Educat. Recommendation for Speech: Inpatient Speech Therapy Comment: On today's reassessment, Pt. tolerated nectar thick liquid and soft solids, with prolonged oral phase due to mastication on solid, mild delay initiating swallow and mildly reduced laryngeal elevation on swallow on all consistencies. Pt is additionally at risk for aspiration, due to noted impulsivity (Pt has had episodes of wandering while inpt., has presented with lack of insight of limitations). Recommend continue on NECTAR THICK liquids, continue CHOPPED/ADVANCED (NDD3) solids, w/ pills CRUSHED in PUREE. Recommend 1-1 Supervision during meals, with close monitor for signs of aspiration. Frequency/Duration: Date Range for Service Req: Timeline to reassess: Primary Care Nurse Clinican/Clinical Fellow: No Supervisory Statement: I have reviewed and agree with the student/clinical fellow's documentation: N/A Speech Language Pathologist: Shelbi Elizalde M.A., CCC-SENIOR ENERGY MARKET COORDINATOR
[2021-02-11] MEDS: Sennosides 8.6 MG TABLET 17.2 MG PO (22:21)
[2021-02-11] MEDS: cefTRIAXone sodium 1 GM in 0.9 % Sodium Chloride 50 ML IV (22:39)
[2021-02-11] MEDS: Azithromycin 500 MG in 0.9 % Sodium Chloride 250 ML 125 MG IV (23:10)
[2021-02-12] VITALS (8 sets, daily range): BP systolic 105–171; BP diastolic 68–86; PULSE 78–133; RESP 20–22; TEMP 36–36.4; O2SAT 92–96
[2021-02-12] MEDS: 0.9 % Sodium Chloride Flush 3 ML SYRINGE IVFLUSH ×3 (00:16→16:21)
[2021-02-12] MEDS: methylPREDNISolone Sod Succ 40 MG/ML VIAL IVPUSH ×3 (00:16→16:21)
[2021-02-12] MEDS: Albuterol/Iprat 2.5/0.5MG 3 ML AMPUL.NEB INHALE (03:15)
[2021-02-12] MEDS: Metoprolol Succinate ER 50 MG TAB.ER.24H PO (10:04)
[2021-02-12] MEDS: Donepezil HCl 5 MG TABLET PO (10:04)
[2021-02-12] MEDS: Escitalopram Oxalate 10 MG TABLET PO (10:04)
[2021-02-12 10:21] LABS: ABG Refer to POC result
[2021-02-12 10:21] LABS: ABG HCO3 22 mmol/L (22-26); ABG pCO2 29 mmHg (32-45); ABG pCO2 TC 29 mmHg (32-45); ABG pH 7.49 (7.35-7.45); ABG pH TC 7.48 (7.35-7.45); ABG pO2 86 mmHg (83-108); ABG pO2 TC 87 (83-108)
--- NOTE | 2021-02-12 11:08 | MHC.SLORD ---
Speech Language Pathology Order Status: Patient not appropriate for PO trials d/t lethargy. Patient is on chopped/advanced (NDD3) solids and nectar thick liquids.
--- NOTE | 2021-02-12 11:19 | MHC.CM.PN ---
Per ROUNDS discussion,Patient is not yet m cleared for dc (Sitter, IV Azithromycin, IV Ceftriaxone, IV Solu Medrol, 5LO2). PT recommends STR;Patient/ wants home with new [facility].CM will follow for dc planning.
--- NOTE | 2021-02-12 11:26 | P.PNIM_ITS ---
Subjective Subjective Date of Service: 02/12/21 Interval History: F/u on copd resp failure, remains confused, somnolent this morning, easily aroused, still confused, and agitated at time, sitter in Review of Systems confused no fever Physical Exam Vital Signs: Vital Signs: Last Vital Signs Temp 97.0 F 02/12/21 07:45 Pulse 97 02/12/21 10:04 Resp 20 02/12/21 07:45 BP 105/73 02/12/21 10:04 Pulse Ox 95 02/12/21 03:18 Oxygen Flow Rate 1 02/07/21 22:39 BMI result Body Mass Index 25.9 Const: Other: Const Other:?Awake alert able to speak in short sentences while lying at 30 degrees Resp Other:?Bilateral basal end inspiratory crackles diminished at bases no rales rhonchi wheezes Cardio Other:?Distant heart sounds; no S4; positive S1-S2; no S3 murmurs rubs or gallops Extrem Other:?No edema bilaterally Objective Data Active Medications Acetaminophen (Acetaminophen 325 Mg Tablet) 650 mg PO Q6H PRN PRN Reason: Pain, Mild (Pain Scale 1-3) Last Admin: 02/10/21 21:01 Dose: 650 mg Documented by: ALEC Albuterol/Ipratropium (Albuterol/Iprat 2.5/0.5mg 3 Ml Ampul.Neb) 3 ml INHALE RQ4H PRN PRN Reason: Shortness of Breath/Wheezing Last Admin: 02/12/21 03:15 Dose: 3 ml Documented by: RUDY Donepezil HCl (Donepezil Hcl 5 Mg Tablet) 5 mg PO DAILY [facility] Last Admin: 02/12/21 10:04 Dose: 5 mg Documented by: HOMERO Escitalopram Oxalate (Escitalopram Oxalate 10 Mg Tablet) 10 mg PO DAILY [facility] Last Admin: 02/12/21 10:04 Dose: 10 mg Documented by: HOMERO Ceftriaxone Sodium 1 gm/ (Sodium Chloride) 50 mls @ 100 mls/hr IV Q24H [facility] Last Infusion: 02/11/21 23:10 Dose: 0 mls/hr Documented by: ALEC Azithromycin 500 mg/ Sodium (Chloride) 250 mls @ 125 mls/hr IV Q24H [facility] Last Infusion: 02/12/21 01:10 Dose: 0 mls/hr Documented by: MULU Melatonin (Melatonin 3 Mg Tablet) 6 mg PO BEDTIME PRN PRN Reason: Insomnia Last Admin: 02/11/21 22:46 Dose: 6 mg Documented by: ALEC Methylprednisolone Sodium Succinate (Methylprednisolone Sod Succ 40 Mg/Ml Vial) 40 mg IVPUSH Q8H [facility] Last Admin: 02/12/21 10:05 Dose: 40 mg Documented by: HOMERO Metoprolol Succinate (Metoprolol Succinate Er 50 Mg Tab.Er.24h) 50 mg PO DAILY [facility]; Protocol Last Admin: 02/12/21 10:04 Dose: 50 mg Documented by: HOMERO Senna (Sennosides 8.6 Mg Tablet) 17.2 mg PO BEDTIME PRN PRN Reason: Constipation Last Admin: 02/11/21 22:21 Dose: 17.2 mg Documented by: ALEC Sodium Biphosphate/Sodium Phosphate (Sodium Phosphate,[place]-Dibasic 133 Ml Enema) 133 ml [place] ONCE PRN PRN Reason: Constipation Last Admin: 02/10/21 19:15 Dose: 133 ml Documented by: ROSE MARIE Sodium Chloride (0.9 % Sodium Chloride Flush 3 Ml Syringe) 3 ml IVFLUSH QSHIFT [facility] Last Admin: 02/12/21 10:04 Dose: 3 ml Documented by: HOMERO Labs CBC & Chem 7: 02/11/21 06:30 02/11/21 06:30 Labs: Laboratory Results - last 24 hr 02/12/21 10:14 O2 Saturation 97.0 ABG pH at Pt Temp 7.49 H ABG pH (Temp Correct) 7.48 H ABG pCO2 at Pt Temp 29 L ABG pCO2 (Temp Corrct 29 L ABG pO2 at Pt Temp 86 ABG pO2 (Temp Correct 87 ABG HCO3 22 ABG Base Excess (Actual) 0.0 Assessment and Plan (1) COPD with acute exacerbation: Status: Acute Assessment and Plan: 85-year-old male with a past medical history of hypertension, hyperlipidemia, COPD-not on home oxygen, dementia presented to the hospital from home with a chief complaint of shortness of breath. . Likely pneumonia on CT 1.Acute hypoxic respiratory failure Likely related to pneumonia Continue Azithro/CTX and steroids Titrate O2 as tolerated reviewed abg result 2. COPD--continue O2, steroid to oral prednisone and bronchodilators 3.Dementia--continue arricecpt 4.Hypertension Continue home metoprolol / amlodipine 5.GERD Continue home PPI DVT prophylaxis: SCD boots Code status: Full code late entry note for 02/11 Spoke to and confirmed that he's still full code Quality Stroke Does the patient have a stroke diagnosis?: No VTE Prior VTE?: No VTE Risk Level:: Medical - moderate - high VTE Device Contraindication: N/A - Device Ordered VTE Drug Contraindication: Treatment Not Indicated
[2021-02-12] MEDS: Azithromycin 500 MG in 0.9 % Sodium Chloride 250 ML 125 MG IV (22:21)
[2021-02-12] MEDS: cefTRIAXone sodium 1 GM in 0.9 % Sodium Chloride 50 ML IV (22:21)
[2021-02-13] VITALS: BP 128/68; PULSE 94; RESP 18; TEMP 36.6; O2SAT 92
[2021-02-13] MEDS: Melatonin 3 MG TABLET 6 MG PO (00:52)
[2021-02-13] MEDS: methylPREDNISolone Sod Succ 40 MG/ML VIAL IVPUSH (00:52)
[2021-02-13] MEDS: 0.9 % Sodium Chloride Flush 3 ML SYRINGE IVFLUSH ×4 (00:53→20:59)
[2021-02-13] MEDS: ondansetron HCL 4 MG/2 ML VIAL IVPUSH (01:08)
[2021-02-13 04:00] VITALS: BP 141/82; PULSE 107; RESP 18; TEMP 36.3; O2SAT 92
[2021-02-13 07:20] VITALS: BP 130/77; PULSE 105; RESP 18; TEMP 36.2; O2SAT 93
--- NOTE | 2021-02-13 09:28 | P.PNIM_ITS ---
Subjective Subjective Date of Service: 02/13/21 Interval History: F/u on copd resp failure, he is less confused, breathing easier, O2 requirement down Review of Systems confused no fever Physical Exam Vital Signs: Vital Signs: Last Vital Signs Temp 97.2 F 02/13/21 07:20 Pulse 105 H 02/13/21 07:20 Resp 18 02/13/21 07:20 BP 130/77 02/13/21 07:20 Pulse Ox 93 02/13/21 07:20 Oxygen Flow Rate 1 02/07/21 22:39 BMI result Body Mass Index 25.9 Const: Other: Const:?Awake alert, oriented to self, place Resp:?lungs clear, no rales, no weezes, normal effort Cardio: Distant heart sounds; no S4; positive S1-S2; no S3 murmurs rubs or gallops Extrem: ?No edema bilaterally Objective Data Active Medications Acetaminophen (Acetaminophen 325 Mg Tablet) 650 mg PO Q6H PRN PRN Reason: Pain, Mild (Pain Scale 1-3) Last Admin: 02/10/21 21:01 Dose: 650 mg Documented by: ALEC Albuterol/Ipratropium (Albuterol/Iprat 2.5/0.5mg 3 Ml Ampul.Neb) 3 ml INHALE RQ4H PRN PRN Reason: Shortness of Breath/Wheezing Last Admin: 02/12/21 03:15 Dose: 3 ml Documented by: RUDY Donepezil HCl (Donepezil Hcl 5 Mg Tablet) 5 mg PO DAILY [facility] Last Admin: 02/12/21 10:04 Dose: 5 mg Documented by: HOMERO Escitalopram Oxalate (Escitalopram Oxalate 10 Mg Tablet) 10 mg PO DAILY [facility] Last Admin: 02/12/21 10:04 Dose: 10 mg Documented by: HOMERO Ceftriaxone Sodium 1 gm/ (Sodium Chloride) 50 mls @ 100 mls/hr IV Q24H [facility] Last Infusion: 02/12/21 23:00 Dose: 0 mls/hr Documented by: NADEEN Azithromycin 500 mg/ Sodium (Chloride) 250 mls @ 125 mls/hr IV Q24H [facility] Last Infusion: 02/13/21 00:25 Dose: 0 mls/hr Documented by: NADEEN Melatonin (Melatonin 3 Mg Tablet) 6 mg PO BEDTIME PRN PRN Reason: Insomnia Last Admin: 02/13/21 00:52 Dose: 6 mg Documented by: NADEEN Methylprednisolone Sodium Succinate (Methylprednisolone Sod Succ 40 Mg/Ml Vial) 40 mg IVPUSH Q8H [facility] Last Admin: 02/13/21 00:52 Dose: 40 mg Documented by: NADEEN Metoprolol Succinate (Metoprolol Succinate Er 50 Mg Tab.Er.24h) 50 mg PO DAILY [facility]; Protocol Last Admin: 02/12/21 10:04 Dose: 50 mg Documented by: HOMERO Senna (Sennosides 8.6 Mg Tablet) 17.2 mg PO BEDTIME PRN PRN Reason: Constipation Last Admin: 02/11/21 22:21 Dose: 17.2 mg Documented by: BEKAASY Sodium Biphosphate/Sodium Phosphate (Sodium Phosphate,[place]-Dibasic 133 Ml Enema) 133 ml [place] ONCE PRN PRN Reason: Constipation Last Admin: 02/10/21 19:15 Dose: 133 ml Documented by: ROSE MARIE Sodium Chloride (0.9 % Sodium Chloride Flush 3 Ml Syringe) 3 ml IVFLUSH QSHIFT [facility] Last Admin: 02/13/21 00:53 Dose: 3 ml Documented by: NADEEN Labs CBC & Chem 7: 02/11/21 06:30 02/11/21 06:30 Labs: Laboratory Results - last 24 hr 02/12/21 10:14 O2 Saturation 97.0 ABG pH at Pt Temp 7.49 H ABG pH (Temp Correct) 7.48 H ABG pCO2 at Pt Temp 29 L ABG pCO2 (Temp Corrct 29 L ABG pO2 at Pt Temp 86 ABG pO2 (Temp Correct 87 ABG HCO3 22 ABG Base Excess (Actual) 0.0 Microbiology Microbiology Results: Microbiology 02/08/21 01:39 Blood Culture - Final Blood - Venous No growth after 5 days. 02/07/21 23:32 Blood Culture - Final Blood - Venous No growth after 5 days. Assessment and Plan (1) Pneumonia: Status: Acute (2) COPD with acute exacerbation: Status: Acute Assessment and Plan: 85-year-old male with a past medical history of hypertension, hyperlipidemia, COPD-not on home oxygen, dementia presented to the hospital from home with a chief complaint of shortness of breath. . Likely pneumonia on CT 1.Acute hypoxic respiratory failure Likely related to pneumonia and COPD DC IV Azithro and Ceftriaxone, and add oral Ceftin Titrate O2 as tolerated to sat of 90 or better 2. COPD--continue O2, steroid to oral prednisone and bronchodilators 3.Dementia--continue arricecpt 4.Hypertension Continue home metoprolol / amlodipine 5.GERD Continue home PPI DVT prophylaxis: SCD boots Code status: Full code DispoL Quality Stroke Does the patient have a stroke diagnosis?: No VTE Prior VTE?: No VTE Risk Level:: Medical - moderate - high VTE Device Contraindication: N/A - Device Ordered VTE Drug Contraindication: Treatment Not Indicated
[2021-02-13] MEDS: predniSONE 20 MG TABLET PO (10:35)
[2021-02-13] MEDS: Metoprolol Succinate ER 50 MG TAB.ER.24H PO (10:35)
[2021-02-13] MEDS: Escitalopram Oxalate 10 MG TABLET PO (10:35)
[2021-02-13] MEDS: Donepezil HCl 5 MG TABLET PO (10:35)
[2021-02-13 11:14] VITALS: BP 170/90; PULSE 110; RESP 18; TEMP 36.9; O2SAT 93
[2021-02-13 15:35] VITALS: BP 137/73; PULSE 109; RESP 19; TEMP 37.1; O2SAT 95
[2021-02-13 19:20] VITALS: BP 125/76; PULSE 114; RESP 19; TEMP 36.2; O2SAT 96
[2021-02-14] VITALS (8 sets, daily range): BP systolic 118–136; BP diastolic 66–94; PULSE 74–118; RESP 15–22; TEMP 36.1–36.8; O2SAT 92–97
[2021-02-14] MEDS: Donepezil HCl 5 MG TABLET PO (08:52)
[2021-02-14] MEDS: Metoprolol Succinate ER 50 MG TAB.ER.24H PO (08:52)
[2021-02-14] MEDS: predniSONE 20 MG TABLET PO (08:52)
[2021-02-14] MEDS: 0.9 % Sodium Chloride Flush 3 ML SYRINGE IVFLUSH ×3 (08:52→20:57)
[2021-02-14] MEDS: Escitalopram Oxalate 10 MG TABLET PO (08:52)
--- NOTE | 2021-02-14 09:21 | P.PNIM_ITS ---
Subjective Subjective Date of Service: 02/14/21 Interval History: F/u on copd resp failure, seems comfortable, no sob Review of Systems confused--baseline no fever no sob Physical Exam Verdana 4l Vital Signs: Verdana 4d Verdana 4d Vital Signs: [place] 4d Verdana 4Bd Last Vital Signs Verdana 4d Wash Oil Pump Operator Helper New 4d Wash Oil Pump Operator Helper New 4d Temp 97.6 F 02/14/21 08:00 Wash Oil Pump Operator Helper New 4d Pulse 118 H 02/14/21 08:52 Wash Oil Pump Operator Helper NewNew 4d Resp 18 02/14/21 08:00 BP 132/92 H 02/14/21 08:52 Pulse Ox 95 02/14/21 08:00 Oxygen Flow Rate 1 02/07/21 22:39 BMI result Body Mass Index 25.9 Const: Other: Const:?Awake alert, oriented to self, place Resp:?lungs clear, no rales, no weezes, normal effort Cardio: Distant heart sounds; no S4; positive S1-S2; no S3 murmurs rubs or gallops Extrem: ?No edema bilaterally Objective Data Active Medications Acetaminophen (Acetaminophen 325 Mg Tablet) 650 mg PO Q6H PRN PRN Reason: Pain, Mild (Pain Scale 1-3) Last Admin: 02/10/21 21:01 Dose: 650 mg Documented by: ALEC Albuterol/Ipratropium (Albuterol/Iprat 2.5/0.5mg 3 Ml Ampul.Neb) 3 ml INHALE RQ4H PRN PRN Reason: Shortness of Breath/Wheezing Last Admin: 02/12/21 03:15 Dose: 3 ml Documented by: RUDY Donepezil HCl (Donepezil Hcl 5 Mg Tablet) 5 mg PO DAILY [facility] Last Admin: 02/14/21 08:52 Dose: 5 mg Documented by: CRISPIN Escitalopram Oxalate (Escitalopram Oxalate 10 Mg Tablet) 10 mg PO DAILY [facility] Last Admin: 02/14/21 08:52 Dose: 10 mg Documented by: CRISPIN Melatonin (Melatonin 3 Mg Tablet) 6 mg PO BEDTIME PRN PRN Reason: Insomnia Last Admin: 02/13/21 00:52 Dose: 6 mg Documented by: NADEEN Metoprolol Succinate (Metoprolol Succinate Er 50 Mg Tab.Er.24h) 50 mg PO DAILY [facility]; Protocol Last Admin: 02/14/21 08:52 Dose: 50 mg Documented by: CRISPIN Prednisone (Prednisone 20 Mg Tablet) 20 mg PO DAILY [facility] Last Admin: 02/14/21 08:52 Dose: 20 mg Documented by: CRISPIN Senna (Sennosides 8.6 Mg Tablet) 17.2 mg PO BEDTIME PRN PRN Reason: Constipation Last Admin: 02/11/21 22:21 Dose: 17.2 mg Documented by: ALEC Sodium Biphosphate/Sodium Phosphate (Sodium Phosphate,[place]-Dibasic 133 Ml Enema) 133 ml [place] ONCE PRN PRN Reason: Constipation Last Admin: 02/10/21 19:15 Dose: 133 ml Documented by: ROSE MARIE Sodium Chloride (0.9 % Sodium Chloride Flush 3 Ml Syringe) 3 ml IVFLUSH QSHIFT [facility] Last Admin: 02/14/21 08:52 Dose: 3 ml Documented by: CRISPIN Labs CBC & Chem 7: 02/11/21 06:30 02/11/21 06:30 Assessment and Plan (1) Pneumonia: Status: Acute (2) COPD with acute exacerbation: Status: Acute Assessment and Plan: 85-year-old male with a past medical history of hypertension, hyperlipidemia, COPD-not on home oxygen, dementia presented to the hospital from home with a chief complaint of shortness of breath. . Likely pneumonia on CT 1.Acute hypoxic respiratory failure Likely related to pneumonia and COPD DC IV Azithro and Ceftriaxone, and add oral Ceftin Titrate O2 as tolerated to sat of 90 or better 2. COPD--continue O2, steroid to oral prednisone and bronchodilators 3.Dementia--continue arricecpt 4.Hypertension Continue home metoprolol / amlodipine 5.GERD Continue home PPI DVT prophylaxis: SCD boots Code status: Full code DispoL Quality Stroke Does the patient have a stroke diagnosis?: No VTE Prior VTE?: No VTE Risk Level:: Medical - moderate - high VTE Device Contraindication: N/A - Device Ordered VTE Drug Contraindication: Treatment Not Indicated
[2021-02-15] VITALS (8 sets, daily range): BP systolic 96–176; BP diastolic 63–80; PULSE 64–109; RESP 16–20; TEMP 36.1–37.1; O2SAT 94–97
[2021-02-15] MEDS: Escitalopram Oxalate 10 MG TABLET PO (09:24)
[2021-02-15] MEDS: Donepezil HCl 5 MG TABLET PO (09:25)
[2021-02-15] MEDS: Metoprolol Succinate ER 50 MG TAB.ER.24H PO (09:25)
[2021-02-15] MEDS: 0.9 % Sodium Chloride Flush 3 ML SYRINGE IVFLUSH ×2 (09:25→20:49)
[2021-02-15] MEDS: predniSONE 20 MG TABLET PO (09:25)
--- NOTE | 2021-02-15 11:22 | MHC.SL.SWA ---
Speech Pathologist Impression: Oralpharyngeal Dysphagia Risk of Aspiration Due to: History of Pneumonia Dysphasia Diet Status: No Change Liquid Consistency and Strategies for Safe Swallow: Liquid Intake Recommendation: [place] Thick Liquid Intake Strategies: Small Sips No Straws Solid Food Consistency: Dietary Recommendations: Chopped/Advanced (NDD3) Additional Modifications to Solid Foods: Recommend continue CHOPPED/ADVANCED (NDD3) solids and NECTAR THICK liquids (NO STRAWS) with pills CRUSHED in PUREE. Witnessed aspiration on thin liquid water this morning. Patient is able to feed himself, but due to impulsivity and hx aspiration, at very minimum patient to have 1-1 supervision during PO intake, monitoring for any overt s/s of aspiration, and strict aspiration precautions. Please contact SHEAR OPERATOR HELPER should patient have any difficulty with currently recommended consistencies. SHEAR OPERATOR HELPER will continue to follow. Oral Medication Intake: Crushed with Puree Compensatory Strategies and Precautions to be Taken for Safe Swallow: Sitting Upright (90 deg) No Straw Small Bites and Sips Alternate Liquids/Solids Rate of Ingestion Change Supervision While Eating and Drinking for Safe Swallow: Total Supervision (1:1) Foods to Avoid: Pt will need total supervision with close monitor for signs of aspiration Swallowing Recommended Treatments: Compens. Strategy Educat. Recommendation for Speech: Inpatient Speech Therapy Games Manager Clinican/Clinical Fellow: Yes: Tiara Cardenas Supervisory Statement: I have reviewed and agree with the student/clinical fellow's documentation: N/A Speech Language Pathologist: Brandie Tavarez M.A., CCC-SHEAR OPERATOR HELPER
--- NOTE | 2021-02-15 12:52 | MHC.CM.PN ---
Per ROUNDS discussion, Patient is not yet medically cleared for dc (titrating O2). PT recommends STR but Patient/ want home with new [facility]. CM will follow.
--- NOTE | 2021-02-15 14:33 | P.PNIM_ITS ---
Subjective Subjective Date of Service: 02/15/21 Interval History: no acute issues overnight. Laying semi Davis's able to speak in full sentences Review of Systems denies chest pain Denies shortness of breath Denies nausea vomiting diarrhea Physical Exam Vital Signs: Vital Signs: Last Vital Signs Temp 97.0 F 02/15/21 11:24 Pulse 98 02/15/21 11:24 Resp 20 02/15/21 11:24 BP 118/80 02/15/21 11:24 Pulse Ox 94 02/15/21 11:24 Oxygen Flow Rate 1 02/07/21 22:39 BMI result Body Mass Index 25.9 Const: Other: Awake alert able to speak in short sentences while lying at 30 degrees Resp: Other: Bilateral basal end inspiratory crackles diminished at bases no rales rhonchi wheezes Cardio: Other: Distant heart sounds; no S4; positive S1-S2; no S3 murmurs rubs or gallops Extrem: Other: No edema bilaterally Objective Data Active Medications Acetaminophen (Acetaminophen 325 Mg Tablet) 650 mg PO Q6H PRN PRN Reason: Pain, Mild (Pain Scale 1-3) Last Admin: 02/10/21 21:01 Dose: 650 mg Documented by: ALEC Cefuroxime Axetil (Cefuroxime Axetil 500 Mg Tablet) 500 mg PO Q12H [facility] Last Admin: 02/15/21 09:24 Dose: 500 mg Documented by: GARRISON Donepezil HCl (Donepezil Hcl 5 Mg Tablet) 5 mg PO DAILY [facility] Last Admin: 02/15/21 09:25 Dose: 5 mg Documented by: GARRISON Escitalopram Oxalate (Escitalopram Oxalate 10 Mg Tablet) 10 mg PO DAILY [facility] Last Admin: 02/15/21 09:24 Dose: 10 mg Documented by: GARRISON Melatonin (Melatonin 3 Mg Tablet) 6 mg PO BEDTIME PRN PRN Reason: Insomnia Last Admin: 02/13/21 00:52 Dose: 6 mg Documented by: NADEEN Metoprolol Succinate (Metoprolol Succinate Er 50 Mg Tab.Er.24h) 50 mg PO DAILY [facility]; Protocol Last Admin: 02/15/21 09:25 Dose: 50 mg Documented by: GARRISON Prednisone (Prednisone 20 Mg Tablet) 20 mg PO DAILY [facility] Last Admin: 02/15/21 09:25 Dose: 20 mg Documented by: GARRISON Senna (Sennosides 8.6 Mg Tablet) 17.2 mg PO BEDTIME PRN PRN Reason: Constipation Last Admin: 02/11/21 22:21 Dose: 17.2 mg Documented by: ALEC Sodium Biphosphate/Sodium Phosphate (Sodium Phosphate,[place]-Dibasic 133 Ml Enema) 133 ml [place] ONCE PRN PRN Reason: Constipation Last Admin: 02/10/21 19:15 Dose: 133 ml Documented by: ROSE MARIE Sodium Chloride (0.9 % Sodium Chloride Flush 3 Ml Syringe) 3 ml IVFLUSH QSHIFT [facility] Last Admin: 02/15/21 09:25 Dose: 3 ml Documented by: GARRISON Labs CBC & Chem 7: 02/11/21 06:30 02/11/21 06:30 Assessment and Plan (1) COPD with acute exacerbation: Status: Acute (2) Interstitial lung disease: Status: Acute (3) Pneumonia: Status: Acute Assessment and Plan: 85-year-old male with a past medical history of hypertension, hyperlipidemia, COPD-not on home oxygen, dementia presented to the hospital from home with a chief complaint of shortness of breath. . Likely pneumonia on CT 1.Acute hypoxic respiratory failure Doing well with Nasal Cannula. Continue Ceftin/Prednisone 2. COPD Continue O2, steroid to oral prednisone and bronchodilators 3.Dementia--continue arricecpt 4.Hypertension Continue home metoprolol / amlodipine 5.GERD Continue home PPI DVT prophylaxis: SCD boots Code status: Full code Physical therapy recommends placement however family wishes home with services. Will do home O2 eval in a.m. and discussed with discharge planning. will discussed with family in a Quality Stroke Does the patient have a stroke diagnosis?: No VTE Prior VTE?: No VTE Risk Level:: Medical - moderate - high VTE Device Contraindication: N/A - Device Ordered VTE Drug Contraindication: Treatment Not Indicated
[2021-02-16 07:09] LABS: Alanine Aminotransferase 30 U/L (0-40); Albumin Level 3.2 g/dL (3.5-5.0); Alkaline Phosphatase 67 U/L (39-117); Anion Gap 10 (12-20); Aspartate Amino Transferase 18 U/L (5-37); Basophils Percent Auto 0.2 % (0-2); Bilirubin Total 0.9 mg/dL (0.0-1.0); Blood Urea Nitrogen 35 mg/dL (9-16); Calcium 8.3 mg/dL (8.4-10.2); Carbon Dioxide 28 mmol/L (22-29); Chloride 105 mmol/L (96-108); Creatinine Clr Calc Pharmacy 57.3; Eosinophils Absolute Auto 0.2 X10*3/uL (0.0-0.4); Eosinophils Percent Auto 0.8 % (0-4); Estimated Glomerular Filt Rate > 60; Glucose Fasting 123 mg/dL (60-99); Hematocrit 39.6 % (42.0-52.0); Hemoglobin 12.4 g/dl (14.0-18.0); Imm Gran Abs Auto 0.53 X10*3/uL (0.00-0.03); Imm Gran Pct Auto 2.9 % (0.0-0.4); Lymphocytes Absolute Auto 2.4 X10*3/uL (1.2-4.9); MANUAL DIFF FLAG SCAN; Mean Corpuscular HGB Conc 31.3 g/dl (31.0-36.0); Mean Corpuscular Hemoglobin 30.4 pg (27.0-33.0); Mean Corpuscular Volume 97.1 fL (80.0-98.0); Monocytes Absolute Auto 1.8 X10*3/uL (0.1-1.2); Monocytes Percent Auto 9.8 % (2-11); Neutrophils Absolute Auto 13.5 x10*3/uL (2.0-8.3); Neutrophils Percent Auto 73.3 % (45-73); Platelet Count 181 X10*3/uL (160-400); Potassium 4.3 mmol/L (3.3-5.1); Red Blood Count 4.08 X10*6/uL (4.60-5.80); Red Cell Distribution Width 14.7 % (11.0-16.0); SCAN SMEAR FLAG 1; Sodium 139 mmol/L (135-145); Total Protein 5.5 g/dL (6.5-8.0); White Blood Count 18.4 X10*3/uL (4.8-10.8)
[2021-02-16 07:35] LABS: SLIDE REVIEW VERIFIED
[2021-02-16 08:00] VITALS: BP 113/70; PULSE 70; RESP 18; TEMP 36.5; O2SAT 95
[2021-02-16] MEDS: Donepezil HCl 5 MG TABLET PO (09:11)
[2021-02-16] MEDS: Escitalopram Oxalate 10 MG TABLET PO (09:11)
[2021-02-16] MEDS: 0.9 % Sodium Chloride Flush 3 ML SYRINGE IVFLUSH ×2 (09:11→20:07)
[2021-02-16] MEDS: Metoprolol Succinate ER 50 MG TAB.ER.24H PO (09:11)
[2021-02-16] MEDS: predniSONE 20 MG TABLET PO (09:11)
[2021-02-16 09:31] VITALS: BP 113/70; PULSE 70; O2SAT 95
[2021-02-16 11:13] VITALS: BP 127/61; PULSE 99; RESP 18; TEMP 36.6; O2SAT 98
--- NOTE | 2021-02-16 14:54 | MHC.SL.SWA ---
Speech Pathologist Impression: Oralpharyngeal Dysphagia Risk of Aspiration Due to: History of Pneumonia Dysphasia Diet Status: Downgrade Liquid Consistency and Strategies for Safe Swallow: Liquid Intake Recommendation: [place] Thick Liquid Intake Strategies: Small Sips No Straws Solid Food Consistency: Dietary Recommendations: Chopped/Advanced (NDD3) Additional Modifications to Solid Foods: Recommend continue CHOPPED/ADVANCED (NDD3) solids and NECTAR THICK liquids (NO STRAWS) with pills CRUSHED in PUREE. Pt is tolerating diet well, with no clinical s/s aspiration on nectar thick liquids, Chopped/Soft food on trials today. According to Case Mgt. Notes, Pt likely to be discharged to home soon. Recommend Pt continue with nectar thick liquids on discharge, given repeated observation of poor toleration/clinical signs of aspiration on thin liquids while inpt. Pt. will continue to need 1-1 Supervision during meals, w/ close monitor for signs of aspiration. Oral Medication Intake: Crushed with Puree Compensatory Strategies and Precautions to be Taken for Safe Swallow: Sitting Upright (90 deg) No Straw Small Bites and Sips Alternate Liquids/Solids Rate of Ingestion Change Supervision While Eating and Drinking for Safe Swallow: Total Supervision (1:1) Foods to Avoid: Pt will need total supervision with close monitor for signs of aspiration Swallowing Recommended Treatments: Compens. Strategy Educat. Recommendation for Speech: Inpatient Speech Therapy Comment: Recommend continue CHOPPED/ADVANCED (NDD3) solids and NECTAR THICK liquids (NO STRAWS) with pills CRUSHED in PUREE. Pt is tolerating diet well, with no clinical s/s aspiration on nectar thick liquids, Chopped/Soft food on trials today. According to Case Mgt. Notes, Pt likely to be discharged to home soon. Recommend Pt continue with nectar thick liquids on discharge, given repeated observation of poor toleration/clinical signs of aspiration on thin liquids while Inpt. Pt. will continue to need 1-1 Supervision during meals, w/ close monitor for signs of aspiration. Frequency/Duration: Date Range for Service Req: Timeline to reassess: Sock Folder Clinican/Clinical Fellow: No Supervisory Statement: I have reviewed and agree with the student/clinical fellow's documentation: N/A Speech Language Pathologist: Shelbi Elizalde M.A., CCC-PEST CONTROL CHEMICAL TECHNICIAN
[2021-02-16 16:00] VITALS: BP 120/70; PULSE 117; RESP 18; TEMP 36.2; O2SAT 98
--- NOTE | 2021-02-16 17:23 | P.PNIM_ITS ---
Subjective Subjective Date of Service: 02/16/21 Interval History: no acute events overnight. More alert this a.m. Review of Systems denies chest pain Denies shortness of breath Denies nausea vomiting diarrhea Physical Exam Vital Signs: Vital Signs: Last Vital Signs Temp 97.2 F 02/16/21 16:00 Pulse 117 H 02/16/21 16:00 Resp 18 02/16/21 16:00 BP 120/70 02/16/21 16:00 Pulse Ox 98 02/16/21 16:00 Oxygen Flow Rate 1 02/07/21 22:39 BMI result Body Mass Index 25.9 Const: Other: Awake alert able to speak in short sentences while lying at 30 degrees Resp: Other: Bilateral basal end inspiratory crackles diminished at bases no rales rhonchi wheezes Cardio: Other: Distant heart sounds; no S4; positive S1-S2; no S3 murmurs rubs or gallops Extrem: Other: No edema bilaterally Objective Data Active Medications Acetaminophen (Acetaminophen 325 Mg Tablet) 650 mg PO Q6H PRN PRN Reason: Pain, Mild (Pain Scale 1-3) Last Admin: 02/10/21 21:01 Dose: 650 mg Documented by: ALEC Cefuroxime Axetil (Cefuroxime Axetil 500 Mg Tablet) 500 mg PO Q12H [facility] Last Admin: 02/16/21 09:11 Dose: 500 mg Documented by: GARRISON Donepezil HCl (Donepezil Hcl 5 Mg Tablet) 5 mg PO DAILY [facility] Last Admin: 02/16/21 09:11 Dose: 5 mg Documented by: GARRISON Escitalopram Oxalate (Escitalopram Oxalate 10 Mg Tablet) 10 mg PO DAILY [facility] Last Admin: 02/16/21 09:11 Dose: 10 mg Documented by: GARRISON Melatonin (Melatonin 3 Mg Tablet) 6 mg PO BEDTIME PRN PRN Reason: Insomnia Last Admin: 02/13/21 00:52 Dose: 6 mg Documented by: NADEEN Metoprolol Succinate (Metoprolol Succinate Er 50 Mg Tab.Er.24h) 50 mg PO DAILY [facility]; Protocol Last Admin: 02/16/21 09:11 Dose: 50 mg Documented by: GARRISON Prednisone (Prednisone 20 Mg Tablet) 20 mg PO DAILY [facility] Last Admin: 02/16/21 09:11 Dose: 20 mg Documented by: GARRISON Senna (Sennosides 8.6 Mg Tablet) 17.2 mg PO BEDTIME PRN PRN Reason: Constipation Last Admin: 02/11/21 22:21 Dose: 17.2 mg Documented by: ALEC Sodium Biphosphate/Sodium Phosphate (Sodium Phosphate,[place]-Dibasic 133 Ml Enema) 133 ml [place] ONCE PRN PRN Reason: Constipation Last Admin: 02/10/21 19:15 Dose: 133 ml Documented by: ROSE MARIE Sodium Chloride (0.9 % Sodium Chloride Flush 3 Ml Syringe) 3 ml IVFLUSH QSIAFT [facility] Last Admin: 02/16/21 09:11 Dose: 3 ml Documented by: GARRISON Labs CBC & Chem 7: 02/16/21 06:10 02/16/21 06:10 Labs: Laboratory Results - last 24 hr 02/16/21 02/16/21 06:10 06:10 MCV 97.1 MCH 30.4 MCHC 31.3 RDW 14.7 Plt Count 181 MPV 13.0 H Immature Gran % (Auto) 2.9 H Neut % (Auto) 73.3 H Lymph % (Auto) 13.0 L [place] % (Auto) 9.8 Eos % (Auto) 0.8 Baso % (Auto) 0.2 Lymph # (Auto) 2.4 [place] # (Auto) 1.8 H Eos # (Auto) 0.2 Baso # (Auto) 0.0 Abs Immat Gran (auto) 0.53 H Absolute Neuts (auto) 13.5 H Absolute Nucleated RBC 0.000 Nucleated RBC % (auto) 0.0 Smear Tech's Comments VERIFIED Anion Gap 10 L Estim Creat Clear Calc 57.3 Estimated GFR > 60 Fasting Glucose 123 H Calcium 8.3 L Total Bilirubin 0.9 AST 18 D ALT 30 Alkaline Phosphatase 67 D Total Protein 5.5 L D Albumin 3.2 L Assessment and Plan (1) COPD with acute exacerbation: Status: Acute (2) CHF (congestive heart failure): Status: Acute (3) Interstitial lung disease: Status: Acute (4) Dementia: Status: Acute Assessment and Plan: 85-year-old male with a past medical history of hypertension, hyperlipidemia, COPD-not on home oxygen, dementia presented to the hospital from home with a chief complaint of shortness of breath. . Likely pneumonia on CT 1.Acute hypoxic respiratory failure Doing well with Nasal Cannula. Continue Ceftin/Prednisone 2. COPD Continue O2, steroid to oral prednisone and bronchodilators 3.Dementia--continue arricecpt 4.Hypertension Continue home metoprolol / amlodipine 5.GERD Continue home PPI DVT prophylaxis: SCD boots Code status: Full code Physical therapy recommends placement however family wishes home with services. Will do home O2 eval in a.m. and discussed with discharge planning. Quality Stroke Does the patient have a stroke diagnosis?: No VTE Prior VTE?: No VTE Risk Level:: Medical - moderate - high VTE Device Contraindication: N/A - Device Ordered VTE Drug Contraindication: Treatment Not Indicated
[2021-02-16 19:58] VITALS: BP 93/61; PULSE 77; RESP 26; TEMP 36.7; O2SAT 98
[2021-02-16 23:42] VITALS: BP 125/85; PULSE 77; RESP 18; TEMP 37; O2SAT 98
[2021-02-17] VITALS (7 sets, daily range): BP systolic 95–134; BP diastolic 50–70; PULSE 98–133; RESP 18–22; TEMP 36.6–36.9; O2SAT 94–99
--- NOTE | 2021-02-17 02:57 | PC.NURSE ---
Per report, grajeda was pulled at 1600. Pt had void trial until 2200. Pt voided 100 mLs at 2230, with residual of 41 mLs on the bladder scan. Will continue to monitor.
[2021-02-17 06:45] LABS: Basophils Percent Auto 0.1 % (0-2); Eosinophils Absolute Auto 0.2 X10*3/uL (0.0-0.4); Eosinophils Percent Auto 0.9 % (0-4); Hematocrit 34.1 % (42.0-52.0); Hemoglobin 10.8 g/dl (14.0-18.0); Imm Gran Abs Auto 0.61 X10*3/uL (0.00-0.03); Imm Gran Pct Auto 3.4 % (0.0-0.4); Lymphocytes Absolute Auto 2.6 X10*3/uL (1.2-4.9); Lymphocytes Percent Auto 14.4 % (20-40); MANUAL DIFF FLAG SCAN; Mean Corpuscular HGB Conc 31.7 g/dl (31.0-36.0); Mean Corpuscular Hemoglobin 30.9 pg (27.0-33.0); Mean Corpuscular Volume 97.7 fL (80.0-98.0); Monocytes Absolute Auto 1.8 X10*3/uL (0.1-1.2); Neutrophils Absolute Auto 12.9 x10*3/uL (2.0-8.3); Neutrophils Percent Auto 71.2 % (45-73); Platelet Count 177 X10*3/uL (160-400); Red Blood Count 3.49 X10*6/uL (4.60-5.80); Red Cell Distribution Width 14.9 % (11.0-16.0); SCAN SMEAR FLAG 1; White Blood Count 18.1 X10*3/uL (4.8-10.8)
[2021-02-17 06:56] LABS: Alanine Aminotransferase 21 U/L (0-40); Albumin Level 2.9 g/dL (3.5-5.0); Alkaline Phosphatase 60 U/L (39-117); Anion Gap 11 (12-20); Aspartate Amino Transferase 13 U/L (5-37); Bilirubin Total 0.6 mg/dL (0.0-1.0); Blood Urea Nitrogen 43 mg/dL (9-16); Calcium 8.3 mg/dL (8.4-10.2); Carbon Dioxide 25 mmol/L (22-29); Chloride 106 mmol/L (96-108); Creatinine Clr Calc Pharmacy 62.4; Estimated Glomerular Filt Rate > 60; Glucose Fasting 123 mg/dL (60-99); Potassium 4.3 mmol/L (3.3-5.1); Sodium 138 mmol/L (135-145); Total Protein 5.1 g/dL (6.5-8.0)
[2021-02-17 07:20] LABS: SLIDE REVIEW VERIFIED
[2021-02-17] MEDS: 0.9 % Sodium Chloride Flush 3 ML SYRINGE IVFLUSH ×3 (07:29→20:38)
--- NOTE | 2021-02-17 08:39 | PC.NURSE ---
Skin assessment completed. Patient has redness in anal area- barrier cream applied. Scattered bruising to arms. Patient did have a fall with no injury.
[2021-02-17] MEDS: Escitalopram Oxalate 10 MG TABLET PO (09:07)
[2021-02-17] MEDS: Donepezil HCl 5 MG TABLET PO (09:07)
[2021-02-17] MEDS: predniSONE 20 MG TABLET PO (09:08)
[2021-02-17] MEDS: Metoprolol Succinate ER 50 MG TAB.ER.24H PO (09:08)
--- NOTE | 2021-02-17 09:10 | P.CDIC_ITS ---
CDI Concurrent Query Documentation Clarification: PHYSICIAN'S DOCUMENTATION REQUEST Date of Query: 02/17/21 0911 Patient Name: Marco Kelly Admit Date: 02/08/21 Dear Doctor, A review of the medical record indicates additional documentation may be needed. Please review below and update the documentation accordingly. Risk Factors/Clinical Indicators/Treatments Dementia Progress note 02/12 - Dementia, confused, somnolent and agitated at times. Sitter in. Continue Arricept. PMH Hallucinations Based on the above, could you clarify in the Progress Notes which, if any of the following, is the most likely etiology of the confusion/altered mental status? * Dementia - indicate type of dementia, such as Alzheimer's, senile, vascular, Lewy body, etc. * Baseline dementia - indicate type and any associated behavioral disturbances (aggressive, combative, or violent behavior) * Other etiology (please specify) * Unable to determine Use of terms such as suspected, likely, concern for, or probable (associated with a specific diagnosis that is being evaluated, monitored, or treated as if it exists) are acceptable and can be coded in the inpatient setting, when documented at the time of discharge. Thank you, Amirah Christine [facility], CDIS Extension: [phone] Please use your independent medical judgment in providing your response. THIS QUERY IS PART OF THE PERMANENT MEDICAL RECORD Provider Response: Other Other Diagnosis: unable to determine dimension type based on 1 admission
--- NOTE | 2021-02-17 11:33 | MHC.SLORD ---
Speech Language Pathology Order Status: Patient was sleeping when TRACTOR MECHANIC arrived and would not remain awake for more than a few seconds. Not appropriate for dysphagia treatment this morning. Patient is on CHOPPED/ADVANCED (NDD3) solids and NECTAR THICK liquids, crushed pills. TRACTOR MECHANIC will continue to follow.
--- NOTE | 2021-02-17 12:57 | MHC.CM.PN ---
Per MD's request, JOSIAH spoke with Patient's /Yasmin at [phone], to confirm that home with [facility] (NOT THE PT RECOMMENDED STR)remains the goal for dc.Yasmin continues to state that she wants Patient to return home. JOSIAH discussed a referral to [facility] and Patient's Son was planning to pick him up around 2 PM today. Per MD, Patient is not feeling well after lunch and JOSIAH provided MD with contact information for Yasmin. dc for today is now on hold.IMM addressed prior to dc being put on hold.
--- NOTE | 2021-02-17 17:33 | HO.PM.IMPN ---
Subjective Subjective Date of Service: 02/17/21 Interval History: episode of lethargy this morning with minimal responsiveness. Re-evaluated at 17:30 now responding to questions and recognize this senior copywriter. Remained hemodynamically stable through all Review of Systems denies chest pain Denies shortness of breath Denies nausea vomiting diarrhea Physical Exam Vital Signs: Vital Signs: Last Vital Signs Temp 98.0 F 02/17/21 15:29 Pulse 98 02/17/21 15:29 Resp 20 02/17/21 15:29 BP 121/70 02/17/21 15:29 Pulse Ox 98 02/17/21 15:29 Oxygen Flow Rate 1 02/07/21 22:39 BMI result Body Mass Index 25.9 Const: Other: Awake alert able to speak in short sentences while lying at 30 degrees Resp: Other: Bilateral basal end inspiratory crackles diminished at bases no rales rhonchi wheezes Cardio: Other: Distant heart sounds; no S4; positive S1-S2; no S3 murmurs rubs or gallops Extrem: Other: No edema bilaterally Objective Data Active Medications Acetaminophen (Acetaminophen 325 Mg Tablet) 650 mg PO Q6H PRN PRN Reason: Pain, Mild (Pain Scale 1-3) Last Admin: 02/10/21 21:01 Dose: 650 mg Documented by: ALEC Albuterol/Ipratropium (Albuterol/Iprat 2.5/0.5mg 3 Ml Ampul.Neb) 3 ml INHALE RQ4H PRN PRN Reason: Shortness of Breath/Wheezing Cefuroxime Axetil (Cefuroxime Axetil 500 Mg Tablet) 500 mg PO Q12H [facility] Last Admin: 02/17/21 09:07 Dose: 500 mg Documented by: SRAVANTHI Donepezil HCl (Donepezil Hcl 5 Mg Tablet) 5 mg PO DAILY [facility] Last Admin: 02/17/21 09:07 Dose: 5 mg Documented by: SRAVANTHI Escitalopram Oxalate (Escitalopram Oxalate 10 Mg Tablet) 10 mg PO DAILY [facility] Last Admin: 02/17/21 09:07 Dose: 10 mg Documented by: SRAVANTHI Melatonin (Melatonin 3 Mg Tablet) 6 mg PO BEDTIME PRN PRN Reason: Insomnia Last Admin: 02/13/21 00:52 Dose: 6 mg Documented by: NADEEN Metoprolol Succinate (Metoprolol Succinate Er 50 Mg Tab.Er.24h) 50 mg PO DAILY [facility]; Protocol Last Admin: 02/17/21 09:08 Dose: 50 mg Documented by: SRAVANTHI Prednisone (Prednisone 20 Mg Tablet) 20 mg PO DAILY [facility] Last Admin: 02/17/21 09:08 Dose: 20 mg Documented by: SRAVANTHI Senna (Sennosides 8.6 Mg Tablet) 17.2 mg PO BEDTIME PRN PRN Reason: Constipation Last Admin: 02/11/21 22:21 Dose: 17.2 mg Documented by: ALEC Sodium Biphosphate/Sodium Phosphate (Sodium Phosphate,[place]-Dibasic 133 Ml Enema) 133 ml [place] ONCE PRN PRN Reason: Constipation Last Admin: 02/10/21 19:15 Dose: 133 ml Documented by: ROSE MARIE Sodium Chloride (0.9 % Sodium Chloride Flush 3 Ml Syringe) 3 ml IVFLUSH QSHIFT [facility] Last Admin: 02/17/21 16:09 Dose: 3 ml Documented by: SRAVANTHI Labs CBC & Chem 7: 02/17/21 05:57 02/17/21 05:57 Labs: Laboratory Results - last 24 hr 02/17/21 02/17/21 05:57 05:57 MCV 97.7 MCH 30.9 MCHC 31.7 RDW 14.9 Plt Count 177 MPV 13.0 H Immature Gran % (Auto) 3.4 H Neut % (Auto) 71.2 Lymph % (Auto) 14.4 L [place] % (Auto) 10.0 Eos % (Auto) 0.9 Baso % (Auto) 0.1 Lymph # (Auto) 2.6 [place] # (Auto) 1.8 H Eos # (Auto) 0.2 Baso # (Auto) 0.0 Abs Immat Gran (auto) 0.61 H Absolute Neuts (auto) 12.9 H Absolute Nucleated RBC 0.000 Nucleated RBC % (auto) 0.0 Smear Tech's Comments VERIFIED Anion Gap 11 L Estim Creat Clear Calc 62.4 Estimated GFR > 60 Fasting Glucose 123 H Calcium 8.3 L Total Bilirubin 0.6 AST 13 ALT 21 Alkaline Phosphatase 60 Total Protein 5.1 L Albumin 2.9 L Assessment and Plan (1) Interstitial lung disease: Status: Acute (2) Acute hypoxemic respiratory failure: Status: Acute (3) Pneumonia: Status: Acute Assessment and Plan: 85-year-old male with a past medical history of hypertension, hyperlipidemia, COPD-not on home oxygen, dementia presented to the hospital from home with a chief complaint of shortness of breath. . Likely pneumonia on CT 1.Acute hypoxic respiratory failure secondary to pneumonia Attempted to D/C this am...too lethargic. Re eval back almost to baseline. Discussed at length with proxy(Daughter Marci)...will consider DNR/DNI 2.COPD Continue O2, steroid to oral prednisone and bronchodilators 3.Dementia--continue arricecpt 4.Hypertension Continue home metoprolol / amlodipine 5.GERD Continue home PPI DVT prophylaxis: SCD boots Code status: Full code Physical therapy recommends placement however family wishes home with services; family to consider code status Quality Stroke Does the patient have a stroke diagnosis?: No VTE Prior VTE?: No VTE Risk Level:: Medical - moderate - high VTE Device Contraindication: N/A - Device Ordered VTE Drug Contraindication: Treatment Not Indicated
[2021-02-18 03:35] VITALS: BP 98/63; PULSE 64; RESP 20; TEMP 37; O2SAT 94
[2021-02-18 06:30] LABS: Eosinophils Percent Auto 0.5 % (0-4); Hematocrit 26.3 % (42.0-52.0); MANUAL DIFF FLAG SCAN; Mean Corpuscular Volume 98.5 fL (80.0-98.0); Red Blood Count 2.67 X10*6/uL (4.60-5.80); SCAN SMEAR FLAG 1
[2021-02-18 06:32] LABS: Basophils Percent Auto 0.1 % (0-2); Eosinophils Absolute Auto 0.1 X10*3/uL (0.0-0.4); Hemoglobin 8.3 g/dl (14.0-18.0); Imm Gran Abs Auto 0.95 X10*3/uL (0.00-0.03); Lymphocytes Absolute Auto 2.8 X10*3/uL (1.2-4.9); Lymphocytes Percent Auto 14.8 % (20-40); Mean Corpuscular HGB Conc 31.6 g/dl (31.0-36.0); Mean Corpuscular Hemoglobin 31.1 pg (27.0-33.0); Mean Platelet Volume 13.2 fL (9.4-12.4); Monocytes Absolute Auto 1.9 X10*3/uL (0.1-1.2); Monocytes Percent Auto 9.9 % (2-11); Neutrophils Absolute Auto 13.1 x10*3/uL (2.0-8.3); Neutrophils Percent Auto 69.7 % (45-73); Platelet Count 176 X10*3/uL (160-400); Red Cell Distribution Width 14.9 % (11.0-16.0); White Blood Count 18.8 X10*3/uL (4.8-10.8)
[2021-02-18 06:44] LABS: PLT ABN DIST 1
[2021-02-18 06:46] LABS: Alanine Aminotransferase 18 U/L (0-40); Albumin Level 2.8 g/dL (3.5-5.0); Alkaline Phosphatase 54 U/L (39-117); Anion Gap 11 (12-20); Aspartate Amino Transferase 11 U/L (5-37); Bilirubin Total 0.5 mg/dL (0.0-1.0); Blood Urea Nitrogen 61 mg/dL (9-16); Calcium 8.2 mg/dL (8.4-10.2); Carbon Dioxide 23 mmol/L (22-29); Chloride 112 mmol/L (96-108); Creatinine Clr Calc Pharmacy 51.8; Estimated Glomerular Filt Rate > 60; Glucose Fasting 138 mg/dL (60-99); Potassium 4.4 mmol/L (3.3-5.1); Sodium 142 mmol/L (135-145); Total Protein 4.8 g/dL (6.5-8.0)
[2021-02-18 06:54] LABS: SLIDE REVIEW VERIFIED
[2021-02-18 07:13] VITALS: BP 129/69; PULSE 115; RESP 16; TEMP 36; O2SAT 97
--- NOTE | 2021-02-18 09:03 | PC.NURSE ---
STATUS Pt sleepy ad having several bouts of bloody diarrhea; vitals are stable and MD notified. MD approved holding morning medications. Family called in to see patient and discuss pt status.
--- NOTE | 2021-02-18 09:15 | MHC.CM.PN ---
Per MD, Patient is now a DNR and ORTHOPTIST. CM spoke with Patient's Daughter/HCP/Marci at [phone]. Patient's and Daughter are on there way in to see Patient, at MD's recommendation and Marci is agreeable to bring in a copy of the HCP. CM will follow.
[2021-02-18 10:55] VITALS: BP 103/52; PULSE 120; RESP 14; TEMP 36.2; O2SAT 98
--- NOTE | 2021-02-18 11:26 | MHC.CM.PN ---
Per MD, Patient is CHIEF II DISPATCHER and presently appears comfortable and family is with him. Should Patient improve or show s/s of discomfort, GIP VS Home with Hospice may be considered. CM will follow.
--- NOTE | 2021-02-18 15:05 | MHC.SLORD ---
Speech Language Pathology Order Status: Attempted to see Pt this a.m, Pt sleeping, roused briefly to sternal rub, refused treatment and returned to sleep. Will re-attempt a.m. 02/19
--- NOTE | 2021-02-18 15:15 | P.PNIM_ITS ---
Subjective Subjective Date of Service: 02/18/21 Interval History: condition deteriorated yesterday afternoon; DC canceled. Long discussion with patient's daughter related to DNR DNI. Call received at 20:30 02/17; family wished DNR DNI. This a.m., called to bedside for patient losing maroon stool and essentially unresponsive. Call placed to daughter encouraging family to come into bedside. At 10:30 family at bedside. Discussion with family including daughter who is proxy LINUX KERNEL DEVELOPER order Requested. Patient resting comfortably at this time. Review of Systems unable secondary to deterioration of status Physical Exam Vital Signs: Vital Signs: Last Vital Signs Temp 97.1 F 02/18/21 10:55 Pulse 120 H 02/18/21 10:55 Resp 14 02/18/21 10:55 BP 103/52 L 02/18/21 10:55 Pulse Ox 98 02/18/21 10:55 Oxygen Flow Rate 1 02/07/21 22:39 BMI result Body Mass Index 25.9 Const: Other: Awake alert able to speak in short sentences while lying at 30 degrees Resp: Other: Bilateral basal end inspiratory crackles diminished at bases no rales rhonchi wheezes Cardio: Other: Distant heart sounds; no S4; positive S1-S2; no S3 murmurs rubs or gallops Extrem: Other: No edema bilaterally Objective Data Active Medications Acetaminophen (Acetaminophen 325 Mg Tablet) 650 mg PO Q6H PRN PRN Reason: Pain, Mild (Pain Scale 1-3) Last Admin: 02/10/21 21:01 Dose: 650 mg Documented by: ALEC Albuterol/Ipratropium (Albuterol/Iprat 2.5/0.5mg 3 Ml Ampul.Neb) 3 ml INHALE RQ4H PRN PRN Reason: Shortness of Breath/Wheezing Cefuroxime Axetil (Cefuroxime Axetil 500 Mg Tablet) 500 mg PO Q12H [facility] Last Admin: 02/18/21 10:35 Dose: Not Given Documented by: CRISPIN Non-Admin Reason: Physician Approved Donepezil HCl (Donepezil Hcl 5 Mg Tablet) 5 mg PO DAILY [facility] Last Admin: 02/18/21 09:02 Dose: Not Given Documented by: CRISPIN Non-Admin Reason: Physician Approved Escitalopram Oxalate (Escitalopram Oxalate 10 Mg Tablet) 10 mg PO DAILY [facility] Last Admin: 02/18/21 09:03 Dose: Not Given Documented by: CRISPIN Non-Admin Reason: Physician Approved Melatonin (Melatonin 3 Mg Tablet) 6 mg PO BEDTIME PRN PRN Reason: Insomnia Last Admin: 02/13/21 00:52 Dose: 6 mg Documented by: NADEEN Metoprolol Succinate (Metoprolol Succinate Er 50 Mg Tab.Er.24h) 50 mg PO DAILY [facility]; Protocol Last Admin: 02/18/21 09:03 Dose: Not Given Documented by: CRISPIN Non-Admin Reason: Physician Approved Prednisone (Prednisone 20 Mg Tablet) 20 mg PO DAILY [facility] Last Admin: 02/18/21 09:03 Dose: Not Given Documented by: CRISPIN Non-Admin Reason: Physician Approved Senna (Sennosides 8.6 Mg Tablet) 17.2 mg PO BEDTIME PRN PRN Reason: Constipation Last Admin: 02/11/21 22:21 Dose: 17.2 mg Documented by: ALEC Sodium Biphosphate/Sodium Phosphate (Sodium Phosphate,[place]-Dibasic 133 Ml Enema) 133 ml [place] ONCE PRN PRN Reason: Constipation Last Admin: 02/10/21 19:15 Dose: 133 ml Documented by: ROSE MARIE Sodium Chloride (0.9 % Sodium Chloride Flush 3 Ml Syringe) 3 ml IVFLUSH QSHIFT [facility] Last Admin: 02/18/21 09:03 Dose: Not Given Documented by: CRISPIN Non-Yue Reason: Physician Approved Labs CBC & Chem 7: 02/18/21 06:09 02/18/21 06:09 Labs: Laboratory Results - last 24 hr 02/18/21 02/18/21 06:09 06:09 MCV 98.5 H MCH 31.1 MCHC 31.6 RDW 14.9 Plt Count 176 MPV 13.2 H Immature Gran % (Auto) 5.0 H Neut % (Auto) 69.7 Lymph % (Auto) 14.8 L [place] % (Auto) 9.9 Eos % (Auto) 0.5 Baso % (Auto) 0.1 Lymph # (Auto) 2.8 [place] # (Auto) 1.9 H Eos # (Auto) 0.1 Baso # (Auto) 0.0 Abs Immat Gran (auto) 0.95 H Absolute Neuts (auto) 13.1 H Absolute Nucleated RBC 0.000 Nucleated RBC % (auto) 0.0 Smear Tech's Comments VERIFIED Anion Gap 11 L Estim Creat Clear Calc 51.8 Estimated GFR > 60 Fasting Glucose 138 H Calcium 8.2 L Total Bilirubin 0.5 AST 11 ALT 18 Alkaline Phosphatase 54 Total Protein 4.8 L Albumin 2.8 L Assessment and Plan (1) Interstitial lung disease: Status: Acute (2) Acute hypoxemic respiratory failure: Status: Acute (3) Lower GI bleed: Status: Acute Assessment and Plan: 85-year-old male with a past medical history of hypertension, hyperlipidemia, COPD-not on home oxygen, dementia presented to the hospital from home with a chief complaint of shortness of breath. . Likely pneumonia on CT . Made LINUX KERNEL DEVELOPER by family this morning. Will continue comfort measure here and assess in a.m. if appropriate. At this time, patient is not in any discomfort by exam; will place comfort meds prior to end of shift. Further evaluation it in a.m. 1.Acute hypoxic respiratory failure secondary to pneumonia LINUX KERNEL DEVELOPER secondary to above Quality Stroke Does the patient have a stroke diagnosis?: No VTE Prior VTE?: No VTE Risk Level:: Medical - moderate - high VTE Device Contraindication: N/A - Device Ordered VTE Drug Contraindication: Treatment Not Indicated
[2021-02-18 15:47] VITALS: BP 110/56; PULSE 65; RESP 18; TEMP 37; O2SAT 94
[2021-02-18 19:48] VITALS: BP 124/88; PULSE 110; RESP 18; TEMP 36.6; O2SAT 96
[2021-02-18] MEDS: 0.9 % Sodium Chloride Flush 3 ML SYRINGE IVFLUSH (21:39)
[2021-02-19] VITALS: BP 125/58; PULSE 112; RESP 20; TEMP 36.4; O2SAT 92
[2021-02-19 03:36] VITALS: RESP 19
[2021-02-19 07:10] VITALS: RESP 20
[2021-02-19] MEDS: Morphine Sulfate 2 MG/ML CARTRIDGE IVPUSH ×3 (10:01→21:42)
[2021-02-19] MEDS: LORazepam 2 MG/ML VIAL 0.5 MG IVPUSH ×2 (10:30→22:25)
--- NOTE | 2021-02-19 10:37 | MHC.SLORD ---
Speech Language Pathology Order Status: Attempted to see Pt this am. Pt sleeping, did not wake to name, sternal rub. Will continue to see pt. Monday if not d/c'd.
[2021-02-19 12:00] VITALS: RESP 20
--- NOTE | 2021-02-19 13:20 | P.PNIM_ITS ---
Subjective Subjective Date of Service: 02/19/21 Interval History: laying in bed, looks comfortable Asking for help but not distressed Physical Exam Vital Signs: Vital Signs: Last Vital Signs Temp 97.6 F 02/19/21 00:00 Pulse 112 H 02/19/21 00:00 Resp 20 02/19/21 12:00 BP 125/58 L 02/19/21 00:00 Pulse Ox 92 02/19/21 00:00 Oxygen Flow Rate 1 02/07/21 22:39 BMI result Body Mass Index 25.9 Const: Other: comfort measures only Objective Data Active Medications Acetaminophen (Acetaminophen 325 Mg Tablet) 650 mg PO Q6H PRN PRN Reason: Pain, Mild (Pain Scale 1-3) Last Admin: 02/10/21 21:01 Dose: 650 mg Documented by: ALEC Lorazepam (Lorazepam 2 Mg/Ml Vial) 0.5 mg IVPUSH Q4H PRN PRN Reason: anxiety/restlessness Last Admin: 02/19/21 10:30 Dose: 0.5 mg Documented by: GABBY Morphine Sulfate (Morphine Sulfate 2 Mg/Ml Cartridge) 2 mg IVPUSH Q2H PRN; Protocol PRN Reason: Dyspnea Last Admin: 02/19/21 10:01 Dose: 2 mg Documented by: GABBY Senna (Sennosides 8.6 Mg Tablet) 17.2 mg PO BEDTIME PRN PRN Reason: Constipation Last Admin: 02/11/21 22:21 Dose: 17.2 mg Documented by: ALEC Sodium Biphosphate/Sodium Phosphate (Sodium Phosphate,[place]-Dibasic 133 Ml Enema) 133 ml [place] ONCE PRN PRN Reason: Constipation Last Admin: 02/10/21 19:15 Dose: 133 ml Documented by: ROSE MARIE Sodium Chloride (0.9 % Sodium Chloride Flush 3 Ml Syringe) 3 ml IVFLUSH [facility] Last Admin: 02/19/21 09:15 Dose: Not Given Documented by: GABBY Non-Admin Reason: IV Running Labs CBC & Chem 7: 02/18/21 06:09 02/18/21 06:09 Assessment and Plan (1) Acute hypoxemic respiratory failure: Status: Acute Assessment and Plan: 85-year-old male with a past medical history of hypertension, hyperlipidemia, COPD-not on home oxygen, dementia presented to the hospital from home with a chief complaint of shortness of breath. . Likely pneumonia on CT . Made EQUAL EMPLOYMENT OPPORTUNITY OFFICER by family this morning. Will continue comfort measure here and assess in a.m. if appropriate. At this time, patient is not in any discomfort by exam; will place comfort meds prior to end of shift. Further evaluation it in a.m. Acute hypoxic respiratory failure secondary to pneumonia EQUAL EMPLOYMENT OPPORTUNITY OFFICER Start morphine 2 mg Q 2 p.r.n. Ativan 0.5 mg Q for p.r.n. To get hospice team involved Family support Quality Stroke Does the patient have a stroke diagnosis?: No VTE Prior VTE?: No VTE Risk Level:: Medical - moderate - high VTE Device Contraindication: N/A - Device Ordered VTE Drug Contraindication: Treatment Not Indicated
[2021-02-19] MEDS: 0.9 % Sodium Chloride Flush 3 ML SYRINGE IVFLUSH (17:32)
[2021-02-20] VITALS: RESP 18
[2021-02-20] MEDS: 0.9 % Sodium Chloride Flush 3 ML SYRINGE IVFLUSH ×2 (00:24→09:31)
[2021-02-20] MEDS: Morphine Sulfate 2 MG/ML CARTRIDGE IVPUSH ×4 (02:34→14:36)
[2021-02-20] MEDS: LORazepam 2 MG/ML VIAL 0.5 MG IVPUSH ×2 (06:21→09:38)
[2021-02-20 07:38] VITALS: RESP 16
--- NOTE | 2021-02-20 11:08 | P.PNIM_ITS ---
Subjective Subjective Date of Service: 02/20/21 Interval History: laying in bed, looks More comfortable than yesterday Physical Exam Vital Signs: Vital Signs: Last Vital Signs Temp 97.6 F 02/19/21 00:00 Pulse 112 H 02/19/21 00:00 Resp 16 02/20/21 07:38 BP 125/58 L 02/19/21 00:00 Pulse Ox 92 02/19/21 00:00 Oxygen Flow Rate 1 02/07/21 22:39 BMI result Body Mass Index 25.9 Const: Other: comfort measures only Objective Data Active Medications Acetaminophen (Acetaminophen 325 Mg Tablet) 650 mg PO Q6H PRN PRN Reason: Pain, Mild (Pain Scale 1-3) Last Admin: 02/10/21 21:01 Dose: 650 mg Documented by: ALEC Lorazepam (Lorazepam 2 Mg/Ml Vial) 0.5 mg IVPUSH Q4H PRN PRN Reason: anxiety/restlessness Last Admin: 02/20/21 09:38 Dose: 0.5 mg Documented by: CRISPIN Morphine Sulfate (Morphine Sulfate 2 Mg/Ml Cartridge) 2 mg IVPUSH Q2H PRN; Protocol PRN Reason: Dyspnea Last Admin: 02/20/21 09:31 Dose: 2 mg Documented by: CRISPIN Senna (Sennosides 8.6 Mg Tablet) 17.2 mg PO BEDTIME PRN PRN Reason: Constipation Last Admin: 02/11/21 22:21 Dose: 17.2 mg Documented by: ALEC Sodium Biphosphate/Sodium Phosphate (Sodium Phosphate,[place]-Dibasic 133 Ml Enema) 133 ml [place] ONCE PRN PRN Reason: Constipation Last Admin: 02/10/21 19:15 Dose: 133 ml Documented by: ROSE MARIE Sodium Chloride (0.9 % Sodium Chloride Flush 3 Ml Syringe) 3 [facility] Last Admin: 02/20/21 09:31 Dose: 3 ml Documented by: CRISPIN Labs CBC & Chem 7: 02/18/21 06:09 02/18/21 06:09 Assessment and Plan (1) Acute hypoxemic respiratory failure: Status: Acute Assessment and Plan: 85-year-old male with a past medical history of hypertension, hyperlipidemia, COPD-not on home oxygen, dementia presented to the hospital from home with a chief complaint of shortness of breath. . Likely pneumonia on CT . Made MACHINE SLAT BASKET MAKER by family this morning. Will continue comfort measure here and assess in a.m. if appropriate. At this time, patient is not in any discomfort by exam; will place comfort meds prior to end of shift. Further evaluation it in a.m. Acute hypoxic respiratory failure secondary to pneumonia MACHINE SLAT BASKET MAKER continue morphine 2 mg Q 2 p.r.n. continue Ativan 0.5 mg Q for p.r.n. hospice team involved Family support Quality Stroke Does the patient have a stroke diagnosis?: No VTE Prior VTE?: No VTE Risk Level:: Medical - moderate - high VTE Device Contraindication: N/A - Device Ordered VTE Drug Contraindication: Treatment Not Indicated
[2021-02-20 16:00] VITALS: RESP 16
[2021-02-20 23:45] VITALS: RESP 22
[2021-02-21] MEDS: 0.9 % Sodium Chloride Flush 3 ML SYRINGE IVFLUSH ×4 (00:19→20:59)
[2021-02-21] MEDS: LORazepam 2 MG/ML VIAL 0.5 MG IVPUSH ×3 (00:27→12:45)
[2021-02-21] MEDS: Morphine Sulfate 2 MG/ML CARTRIDGE IVPUSH ×3 (03:13→14:15)
[2021-02-21 08:00] VITALS: PULSE 16
--- NOTE | 2021-02-21 11:09 | P.PNIM_ITS ---
Subjective Subjective Date of Service: 02/21/21 Interval History: laying in bed, looks comfortable, not in distress Physical Exam Vital Signs: Vital Signs: Last Vital Signs Temp 97.6 F 02/19/21 00:00 Pulse 16 L 02/21/21 08:00 Resp 22 H 02/20/21 23:45 BP 125/58 L 02/19/21 00:00 Pulse Ox 92 02/19/21 00:00 Oxygen Flow Rate 1 02/07/21 22:39 BMI result Body Mass Index 25.9 Const: Other: comfort measures only Patient laying in the bed comfortable with no signs of any anxiety or restlessness. Objective Data Active Medications Acetaminophen (Acetaminophen 325 Mg Tablet) 650 mg PO Q6H PRN PRN Reason: Pain, Mild (Pain Scale 1-3) Last Admin: 02/10/21 21:01 Dose: 650 mg Documented by: ALEC Lorazepam (Lorazepam 2 Mg/Ml Vial) 0.5 mg IVPUSH Q4H PRN PRN Reason: anxiety/restlessness Last Admin: 02/21/21 05:14 Dose: 0.5 mg Documented by: EBENEZER Morphine Sulfate (Morphine Sulfate 2 Mg/Ml Cartridge) 2 mg IVPUSH Q2H PRN; Protocol PRN Reason: Dyspnea Last Admin: 02/21/21 09:44 Dose: 2 mg Documented by: TRUNG Senna (Sennosides 8.6 Mg Tablet) 17.2 mg PO BEDTIME PRN PRN Reason: Constipation Last Admin: 02/11/21 22:21 Dose: 17.2 mg Documented by: ALEC Sodium Biphosphate/Sodium Phosphate (Sodium Phosphate,[place]-Dibasic 133 Ml Enema) 133 ml [place] ONCE PRN PRN Reason: Constipation Last Admin: 02/10/21 19:15 Dose: 133 ml Documented by: ROSE MARIE Sodium Chloride (0.9 % Sodium Chloride Flush 3 Ml Syringe) 3 ml IVFLUSH [facility] Last Admin: 02/21/21 07:36 Dose: 3 ml Documented by: TRUNG Labs CBC & Chem 7: 02/18/21 06:09 02/18/21 06:09 Assessment and Plan (1) Acute hypoxemic respiratory failure: Status: Acute Assessment and Plan: 85-year-old male with a past medical history of hypertension, hyperlipidemia, COPD-not on home oxygen, dementia presented to the hospital from home with a chief complaint of shortness of breath. . Likely pneumonia on CT . 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 Will continue comfort measure here and assess in a.m. if appropriate. At this time, patient is not in any discomfort by exam; will place comfort meds prior to end of shift. Further evaluation it in a.m. Acute hypoxic respiratory failure secondary to pneumonia EXTRUSION DIE TEMPLATE MAKER continue morphine 2 mg Q 2 p.r.n. continue Ativan 0.5 mg Q for p.r.n. hospice team involved Family support Quality Stroke Does the patient have a stroke diagnosis?: No VTE Prior VTE?: No VTE Risk Level:: Medical - moderate - high VTE Device Contraindication: N/A - Device Ordered VTE Drug Contraindication: Treatment Not Indicated
[2021-02-21 14:15] VITALS: RESP 20
[2021-02-21 15:16] VITALS: RESP 14
[2021-02-21 19:24] VITALS: RESP 14
[2021-02-22] VITALS: RESP 16
[2021-02-22] MEDS: LORazepam 2 MG/ML VIAL 0.5 MG IVPUSH ×4 (01:21→16:59)
[2021-02-22] MEDS: Morphine Sulfate 2 MG/ML CARTRIDGE IVPUSH ×3 (01:54→17:01)
[2021-02-22] MEDS: 0.9 % Sodium Chloride Flush 3 ML SYRINGE IVFLUSH ×2 (08:48→15:52)
--- NOTE | 2021-02-22 11:22 | MHC.CM.PN ---
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 CM will follow.
--- NOTE | 2021-02-22 13:47 | MHC.CM.PN ---
JOSIAH anticipates a dc to home on [facility] on Monday02/24/21. is aware of this and in agreement. JOSIAH will follow.
[2021-02-22 15:01] VITALS: BMI 25.9
[2021-02-22 15:54] VITALS: RESP 20
--- NOTE | 2021-02-22 16:05 | HO.PM.IMPN ---
Subjective Subjective Date of Service: 02/22/21 Interval History: confused agitated. Sleeping at ti Review of Systems unable to obtain secondary to confusion Physical Exam Vital Signs: Vital Signs: Last Vital Signs Temp 97.6 F 02/19/21 00:00 Pulse 16 L 02/21/21 08:00 Resp 20 02/22/21 15:54 BP 125/58 L 02/19/21 00:00 Pulse Ox 92 02/19/21 00:00 Oxygen Flow Rate 1 02/07/21 22:39 BMI result Body Mass Index 25.9 Const: Other: Awake alert able to speak in short sentences while lying at 30 degrees Resp: Other: Bilateral basal end inspiratory crackles diminished at bases no rales rhonchi wheezes Cardio: Other: Distant heart sounds; no S4; positive S1-S2; no S3 murmurs rubs or gallops Extrem: Other: No edema bilaterally Objective Data Active Medications Acetaminophen (Acetaminophen 325 Mg Tablet) 650 mg PO Q6H PRN PRN Reason: Pain, Mild (Pain Scale 1-3) Last Admin: 02/10/21 21:01 Dose: 650 mg Documented by: ALEC Lorazepam (Lorazepam 2 Mg/Ml Vial) 0.5 mg IVPUSH Q4H PRN PRN Reason: anxiety/restlessness Last Admin: 02/22/21 13:31 Dose: 0.5 mg Documented by: YESENIA Morphine Sulfate (Morphine Sulfate 2 Mg/Ml Cartridge) 2 mg IVPUSH Q2H PRN; Protocol PRN Reason: Dyspnea Last Admin: 02/22/21 13:30 Dose: 2 mg Documented by: YESENIA Senna (Sennosides 8.6 Mg Tablet) 17.2 mg PO BEDTIME PRN PRN Reason: Constipation Last Admin: 02/11/21 22:21 Dose: 17.2 mg Documented by: ALEC Sodium Biphosphate/Sodium Phosphate (Sodium Phosphate,[place]-Dibasic 133 Ml Enema) 133 ml [place] ONCE PRN PRN Reason: Constipation Last Admin: 02/10/21 19:15 Dose: 133 ml Documented by: ROSE MARIE Sodium Chloride (0.9 % Sodium Chloride Flush 3 Ml Syringe) 3 ml IVFLUSH [facility] Last Admin: 02/22/21 15:52 Dose: 3 ml Documented by: FLORA Labs CBC & Chem 7: 02/18/21 06:09 02/18/21 06:09 Assessment and Plan (1) Lower GI bleed: Status: Acute (2) Interstitial lung disease: Status: Acute Assessment and Plan: 85-year-old male with a past medical history of hypertension, hyperlipidemia, COPD-not on home oxygen, dementia presented to the hospital from home with a chief complaint of shortness of breath. . Likely pneumonia on CT . 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 Will continue comfort measure here and assess in a.m. if appropriate. At this time, patient is not in any discomfort by exam; will place comfort meds prior to end of shift. Further evaluation it in a.m. Acute hypoxic respiratory failure secondary to pneumonia MOTOR COACH CHAUFFEUR continue morphine 2 mg Q 2 p.r.n. continue Ativan 0.5 mg Q2hrs for p.r.n. hospice team involved Family support Quality Stroke Does the patient have a stroke diagnosis?: No VTE Prior VTE?: No VTE Risk Level:: Medical - moderate - high VTE Device Contraindication: N/A - Device Ordered VTE Drug Contraindication: Treatment Not Indicated
--- NOTE | 2021-02-22 17:01 | MHC.SL.SWA ---
Speech Pathologist Impression: Oralpharyngeal Dysphagia Risk of Aspiration Due to: History of Pneumonia Dysphasia Diet Status: Downgrade Liquid Consistency and Strategies for Safe Swallow: Liquid Intake Recommendation: [place] Thick Liquid Intake Strategies: Small Sips No Straws Solid Food Consistency: Dietary Recommendations: Chopped/Advanced (NDD3) Additional Modifications to Solid Foods: Recommend continue CHOPPED/ADVANCED (NDD3) solids and NECTAR THICK liquids (NO STRAWS) with pills CRUSHED in PUREE. Pt is tolerating diet well, with no clinical s/s aspiration on nectar thick liquids, Chopped/Soft food on trials today. According to Case Mgt. Notes, Pt likely to be discharged to home soon. Recommend Pt continue with nectar thick liquids on discharge, given repeated observation of poor toleration/clinical signs of aspiration on thin liquids while inpt. Pt. will continue to need 1-1 Supervision during meals, w/ close monitor for signs of aspiration. Oral Medication Intake: Crushed with Puree Compensatory Strategies and Precautions to be Taken for Safe Swallow: Sitting Upright (90 deg) No Straw Small Bites and Sips Alternate Liquids/Solids Rate of Ingestion Change Supervision While Eating and Drinking for Safe Swallow: Total Supervision (1:1) Foods to Avoid: Pt will need total supervision with close monitor for signs of aspiration Swallowing Recommended Treatments: Compens. Strategy Educat. Recommendation for Speech: Inpatient Speech Therapy Comment: Pt is tolerating diet at this consistency well, as observed during breakfast this morning. Recommend continue CHOPPED/ADVANCED (NDD3) solids and NECTAR THICK liquids (NO STRAWS) with pills CRUSHED in PUREE. According to Case Mgt. Notes, Pt on [facility] LANDSCAPE ARCHITECT, to be discharged with hospice care. Recommend Pt continue with nectar thick liquids on discharge, given repeated observation of poor toleration/clinical signs of aspiration on thin liquids while Inpt. Pt. will continue to need 1-1 Supervision during meals, w/ close monitor for signs of aspiration. Frequency/Duration: Date Range for Service Req: Timeline to reassess: Bottle Dealer Clinican/Clinical Fellow: No: Tiara Cardenas Supervisory Statement: I have reviewed and agree with the student/clinical fellow's documentation: N/A Speech Language Pathologist: Shelbi Elizalde M.A., CCC-CASKET TRIMMER
[2021-02-22 19:46] VITALS: RESP 18
--- NOTE | 2021-02-22 20:18 | PM.EVENT ---
Event Note Date of Service: 02/22/21 Event Note: Patient at 8:10 pm this evening
--- NOTE | 2021-03-10 11:07 | PM.DS ---
DS: Providers Provider Date of Service: 03/10/21 Date of admission: 02/08/21 00:53 Date of discharge: 02/22/21 Primary care physician: Brenda Garcia MD Consults: 02/08/21 04:43 Consult to Pulmonology Routine Consulting Provider: Kassy Jacques Reason for consultation: hypoxia DS: Diagnosis Discharge Diagnosis (1) Lower GI bleed: Status: Acute (2) Interstitial lung disease: Status: Acute DS: Summary Status at Discharge Cognitive/behavioral status at discharge: 85-year-old male with a past medical history of hypertension, hyperlipidemia, COPD-not on home oxygen, dementia presented to the hospital from home with a chief complaint of shortness of breath.?Initial ER work up demonstrated presence of diffuse patchy airspace disease in backdrop of chronic interstitial lung disease. hospital course Patient admitted to the hospital and started on azithromycin/ ceftriaxone; CT angio of the chest failed to demonstrate a pulmonary embolus but did reveal a 3 cm mass versus consolidation in the left lower lobe. Patient was continued on steroids and antibiotics but failed to improve. Over the course of his hospitalization, he became more confused and agitated. Agitation was likely secondary to encephalopathy resulting from pneumonia in the backdrop of interstitial lung disease. He continued to be confused, and the day before discharge developed some dark tarry stools. Family was consulted and ultimately the decision was made to make him comfort. His progressive decline was secondary to pneumonia superimposed on interstitial lung disease. He on comfort measures family where. Time Spent with Patient Time attestation: Total time spent providing and/or coordinating discharge services: Discharge coordination time: Greater than 30 minutes Quality: Stroke Does the patient have a stroke diagnosis?: No Physical Exam Vital Signs: Vital Signs: Last Vital Signs Temp 97.6 F 02/19/21 00:00 Pulse 16 L 02/21/21 08:00 Resp 18 02/22/21 19:46 BP 125/58 L 02/19/21 00:00 Pulse Ox 92 02/19/21 00:00 Oxygen Flow Rate 1 02/07/21 22:39 BMI result Body Mass Index 25.9 DS: Data Data Completed and Pending Completed studies during hospitalization [Text1]: Procedures Assistance with Respiratory Ventilation, Less than 24 Consecutive Hours, Continuous Positive Airway Pressure (02/08/21) Discharge Plan Discharge Date/Time: 02/22/21 22:48 Patient Disposition: Discharge Diagnosis: Acute hypoxic respiratory failure Referrals: Brenda Garcia MD [Primary Care Provider] - 1 Week Discharge Medications: No Action amlodipine 5 mg tablet 5 mg PO DAILY 90 Days Qty: 90 RF: 0 escitalopram oxalate 10 mg tablet 10 mg PO DAILY Qty: 90 RF: 0 albuterol sulfate [ProAir HFA] 90 mcg/actuation HFA aerosol inhaler 2 puff inhalation Q4-6H PRN (Reason: Wheezing) 30 Days Qty: 8.5 RF: 0 metoprolol succinate 100 mg tablet extended release 24 hr 1 tab PO DAILY RF: 0 gabapentin 100 mg capsule 1 cap PO DAILY RF: 0 donepezil PO DAILY RF: 0 Discharge Date/Time: 02/22/21 20:10
--- NOTE | 2021-03-19 05:53 | P.CDIR_ITS ---
Documented by User: Amirah Christine CCS, CDIS 03/19/21 05:58 Retrospective Query PHYSICIAN'S DOCUMENTATION REQUEST Date of Query: 03/19/2154 Patient Name: Marco Kelly Admit Date: 02/08/21 Dear Doctor, A review of the medical record indicates additional documentation may be needed. Please review below and update the documentation accordingly. Clinical Indicators: Verdana 4Bd Risk Factors/Clinical Indicators/Treatments Verdana 4d ED: patient has altered mental status. PN: 02/11 & 02/12 & 02/17 - remains confused, sometimes agitated, somnolent at times, lethargic, still confused. Discharge summary - Agitation was likely secondary to encephalopathy resulting from pneumonia, and continued to be confused. Based on the above, please further specify, in the Progress Notes, the known or suspected type of the documented encephalopathy: SPECIFICS: * Metabolic * Toxic * Toxic metabolic * Other (please specify) * Unable to determine Use of terms such as suspected, likely, concern for, or probable (associated with a specific diagnosis that is being evaluated, monitored, or treated as if it exists) are acceptable and can be coded in the inpatient setting, when documented at the time of discharge. Thank you, Amirah Christine [facility], CDIS Extension: [phone] Please use your independent medical judgment in providing your response. THIS QUERY IS PART OF THE PERMANENT MEDICAL RECORD Documented by User: Wisam Brenner DO 03/25/21 16:30 Retrospective Query PHYSICIAN'S DOCUMENTATION REQUEST Date of Query: 03/19/21 0554 Patient Name: Marco Kelly Admit Date: 02/08/21 Dear Doctor, A review of the medical record indicates additional documentation may be needed. Please review below and update the documentation accordingly. Clinical Indicators: Verdana 4Bd Risk Factors/Clinical Indicators/Treatments Verdana 4d ED: patient has altered mental status. PN: 02/11 & 02/12 & 02/17 - remains confused, sometimes agitated, somnolent at times, lethargic, still confused. Discharge summary - Agitation was likely secondary to encephalopathy resulting from pneumonia, and continued to be confused. Based on the above, please further specify, in the Progress Notes, the known or suspected type of the documented encephalopathy: SPECIFICS: * Metabolic * Toxic * Toxic metabolic * Other (please specify) * Unable to determine Use of terms such as suspected, likely, concern for, or probable (associated with a specific diagnosis that is being evaluated, monitored, or treated as if it exists) are acceptable and can be coded in the inpatient setting, when documented at the time of discharge. Thank you, Amirah Christine [facility], CDIS Extension: [phone] Please use your independent medical judgment in providing your response. metabolic encephalopathy THIS QUERY IS PART OF THE PERMANENT MEDICAL RECORD Provider Response: Other
--- NOTE | 2021-03-19 06:07 | P.CDIR_ITS ---
Documented by User: Amirah Christine CCS, CDIS 03/19/21 06:11 Retrospective Query PHYSICIAN'S DOCUMENTATION REQUEST Date of Query: 03/19/21607 Patient Name: Marco Kelly Admit Date: 02/08/21 Dear Doctor, A review of the medical record indicates additional documentation may be needed. Please review below and update the documentation accordingly. Clinical Indicators: Verdana 4Bd Risk Factors/Clinical Indicators/Treatments Verdana 4d Patient admitted acute hypoxic respiratory failure multifactorial - CHF vs. COPD vs. PNA. Pulmonary note 02/08 - Assessment/plan: CHF, acute on chronic possibly, diuresis may be helpful. H&P: Acute hypoxia, tachypneic, IV lasix given, elevated BNP, echo ordered. BNP 624 H Echo performed. Please provide further specificity regarding the most likely type and acuity of CHF you are evaluating, treating, or monitoring. Examples include: Type: * Systolic * Diastolic * Combined Systolic/Diastolic * Other ? please specify * Unable to determine Acuity: * Acute * Chronic * Acute on chronic * Unable to determine Use of terms such as suspected, likely, concern for, or probable (associated with a specific diagnosis that is being evaluated, monitored, or treated as if it exists) are acceptable and can be coded in the inpatient setting, when documented at the time of discharge. Thank you, Amirah Christine [facility], CDIS Extension: [phone] Please use your independent medical judgment in providing your response. THIS QUERY IS PART OF THE PERMANENT MEDICAL RECORD Documented by User: Wisam Brenner DO 03/25/21 16:29 Retrospective Query PHYSICIAN'S DOCUMENTATION REQUEST Date of Query: 03/19/21607 Patient Name: Marco Kelly Admit Date: 02/08/21 Dear Doctor, A review of the medical record indicates additional documentation may be needed. Please review below and update the documentation accordingly. Clinical Indicators: Verdana 4Bd Risk Factors/Clinical Indicators/Treatments Verdana 4d Patient admitted acute hypoxic respiratory failure multifactorial - CHF vs. COPD vs. PNA. Pulmonary note 02/08 - Assessment/plan: CHF, acute on chronic possibly, diuresis may be helpful. H&P: Acute hypoxia, tachypneic, IV lasix given, elevated BNP, echo ordered. BNP 624 H Echo performed. Please provide further specificity regarding the most likely type and acuity of CHF you are evaluating, treating, or monitoring. Examples include: Type: * Systolic * Diastolic * Combined Systolic/Diastolic * Other ? please specify * Unable to determine Acuity: * Acute * Chronic * Acute on chronic * Unable to determine Use of terms such as suspected, likely, concern for, or probable (associated with a specific diagnosis that is being evaluated, monitored, or treated as if it exists) are acceptable and can be coded in the inpatient setting, when docum ented at the time of discharge. Thank you, Amirah Christine CCS, CDIS Extension: [phone] Please use your independent medical judgment in providing your response. Acute systolic CHF THIS QUERY IS PART OF THE PERMANENT MEDICAL RECORD Provider Response: Other
== END 2021-02-22 20:10 | disposition expired | DRG 193 ==
LOC: HO.ED 22:53 → HO.EDOVER 02-08 01:12 → HO.IMC 02-08 23:05
PROVIDERS: Internal Medicine; Student in an Organized Health Care Education/Training Program; Admitting Provider Hospitalist; Emergency Provider Internal Medicine; PCP Internal Medicine; Visit Provider Hospitalist
DX: J18.9 Pneumonia, unspecified organism (principal); J96.01 Acute respiratory failure with hypoxia; I50.23 Acute on chronic systolic (congestive) heart failure; G93.41 Metabolic encephalopathy; J44.0 Chronic obstructive pulmonary disease with (acute) lower respiratory infection; J44.1 Chronic obstructive pulmonary disease with (acute) exacerbation; G93.49 Other encephalopathy; K21.9 Gastro-esophageal reflux disease without esophagitis; F17.210 Nicotine dependence, cigarettes, uncomplicated; I11.0 Hypertensive heart disease with heart failure; F03.90 Unspecified dementia, unspecified severity, without behavioral disturbance, psychotic disturbance, mood disturbance, and anxiety; Z71.6 Tobacco abuse counseling; Z20.822 Contact with and (suspected) exposure to COVID-19; Z79.899 Other long term (current) drug therapy; Z66 Do not resuscitate; Z51.5 Encounter for palliative care
CPT/HCPCS: 36415; 36600; 71045; 71275; 80048; 80053; 82803; 83605; 83880; 84484; 85025; 85379; 87040; 87635; 92610; 93005; 93306; 94640; 94660; 96365; 96366; 96367; 96375; 97110; 97116; 97162; 99285; J0456; J0696; J1200; J1940; J2060; J2270; J2405; J2920; J2930; Q9967